=== PATIENT | male | born 1950 | race Caucasian/White ===

== ENCOUNTER 2017-12-28 14:07 | Inpatient (IN) | payer MEDICARE, BC ==
[2017-12-28] MEDS ORDERED: Metoclopramide 10 MG/2 ML SDV IVPUSH ONE (15:18)
[2017-12-28] MEDS ORDERED: Lactated Ringers 1,000 ML IV ONE ×2 (15:18→16:52)
--- NOTE | 2017-12-28 15:25 | EDM.PDOC ---
ED HPI GENERAL MEDICAL PROBLEM - General Chief Complaint: Respiratory Problem Stated Complaint: NECK/THROAT NOT FEELING RIGHT Time Seen by Provider: 12/28/17 15:05 Source of Information: Reports: Family, Old Records, RN History Limitations: Reports: Other (patient currently non-verbal with dementia) - History of Present Illness INITIAL COMMENTS - FREE TEXT/NARRATIVE: 67 yo male with dementia from the [facility] is sent in for lethargy and possible abdominal pain. Is not able to verbalize how he is feeling. No reported fever. Vomited a couple times yesterday. No oral intake since yesterday. Did at one point indicate abdominal pain. No diarrhea or constipation reported. Onset: Gradual Onset Date: 12/26/17 Duration: Day(s):, Getting Worse Location: Reports: Abdomen Quality: Reports: Other (unknown) Severity: Moderate Improves with: Reports: None Worsens with: Reports: Other (? time) Context: Reports: Other ([facility] patient with dementia.) Associated Symptoms: Reports: Loss of Appetite, Nausea/Vomiting. Denies: Fever/ Chills Treatments CMM TECHNICIAN: Reports: Other (see below) (none) Abdominal Pain Score (Numeric/FACES): 10 - Related Data Allergies Allergy/AdvReac Type Severity Reaction Status Date / Time No Known Allergies Allergy Verified 12/28/17 14:39 Home Meds: Home Meds Acetaminophen [Tylenol] 650 mg PO BID 12/28/17 [History] Calcium Carbonate/Vitamin D3 [Calcium 600 + Vit D Tablet] 1 tab PO BID 12/28/17 [History] Cholecalciferol (Vitamin D3) [Vitamin D3] 2,000 unit PO DAILY 12/28/17 [History] Citalopram Hydrobromide [Celexa] 10 mg PO DAILY 12/28/17 [History] Dextran 70/Hypromellose [Artificial Tears] 1 each EYEBOTH QID PRN 12/28/17 [ History] Lisinopril 5 mg PO DAILY 12/28/17 [History] Melatonin 3 mg PO BEDTIME 12/28/17 [History] Mirtazapine [Remeron] 15 mg PO BEDTIME 12/28/17 [History] atorvaSTATin [Lipitor] 10 mg PO BEDTIME 12/28/17 [History] metFORMIN [Glucophage] 500 mg PO BIDAC 12/28/17 [History] Past Medical History HEENT History: Reports: Impaired Vision Cardiovascular History: Reports: Hypertension Musculoskeletal History: Reports: Osteoporosis Endocrine/Metabolic History: Reports: Diabetes, Type II - Past Surgical History GI Surgical History: Reports: Appendectomy Other Neurological Surgeries/Procedures: DEMENTIA Other Musculoskeletal Surgeries/Procedures:: R HIP REPLACEMENT Social & Family History - Tobacco Use Smoking Status *Q: Unknown Ever Smoked ED ROS GENERAL - Review of Systems Review Of Systems: Unable To Obtain (due to dementia) Constitutional: Reports: No Symptoms ED EXAM, GENERAL - Physical Exam Exam: See Below Exam Limited By: No Limitations General Appearance: WD/WN, Lethargic, Mild Distress Eye Exam: Bilateral Eye: Normal Inspection Ears: Normal External Exam, Normal Canal, Hearing Grossly Normal, Normal TMs Ear Exam: Bilateral Ear: Auricle Normal, Canal Normal, TM normal Nose: Normal Inspection, Normal Mucosa, No Blood Throat/Mouth: Normal Inspection, Normal Lips, Normal Oropharynx, Normal Voice, No Airway Compromise Head: Atraumatic, Normocephalic Neck: Normal Inspection Respiratory/Chest: No Respiratory Distress, Lungs Clear, Normal Breath Sounds, No Accessory Muscle Use Cardiovascular: Regular Rate, Rhythm, No Edema GI/Abdominal: No Distention, Distended (minimally), Abnormal Bowel Sounds ( slightly decreased). No: Hernia Back Exam: Normal Inspection. No: CVA Tenderness (R), CVA Tenderness (L) Extremities: Normal Inspection, Normal Range of Motion, Non-Tender, No Pedal Edema Neurological: Alert, Oriented, CN II-XII Intact, Normal Cognition, No Motor/ Sensory Deficits Psychiatric: Normal Affect, Normal Mood Skin Exam: Warm, Dry, Intact, Normal Color, No Rash Lymphatic: No Adenopathy EKG INTERPRETATION EKG Date: 12/28/17 Time: 15:40 Rhythm: NSR Rate (Beats/Min): 95 [place]: Normal P-Wave: Present QRS: Normal ST-T: Normal QT: Normal Comparison: NA - No Prior EKG (no def'n acute ischemia) Course - Vital Signs Last Recorded V/S: Last Vital Signs Temp 37.8 C 12/28/17 16:58 Pulse 97 12/28/17 17:34 Resp 22 H 12/28/17 17:34 BP 113/54 L 12/28/17 16:58 Pulse Ox 93 L 12/28/17 17:34 - Orders/Labs/Meds Orders: Active Orders 24 hr Category Date Time Status EKG Documentation Completion [RC] ASDIRECTED Care 12/28/17 15:20 Active Anderson Catheter Insertion [Insert Urinary Catheter] [OM. Care 12/28/17 16:00 Ordered PC] Q24H Urinary Catheter Assessment [RC] ASDIRECTED Care 12/28/17 15:56 Active Abdomen 2V AP Flat Upright [CR] Stat Exams 12/28/17 15:23 Taken Abdomen Pelvis w Cont [CT] Stat Exams 12/28/17 16:25 Taken Chest 1V Frontal [CR] Stat Exams 12/28/17 15:53 Taken CLOSTRIDIUM DIFFICILE BY PCR [RM] Stat Lab 12/28/17 16:47 Ordered CULTURE BLOOD [BC] Stat Lab 12/28/17 16:33 Ordered HEPATIC FUNCTION PANEL,HFP [CHEM] Urgent Lab 12/28/17 17:36 Ordered UA W/MICROSCOPIC [URIN] Stat Lab 12/28/17 16:06 Ordered Iopamidol [Isovue-300 (61%)] Med 12/28/17 17:15 Active 100 ml IV . DIRECTED Lactated Ringers [Ringers, Lactated] 1,000 ml Med 12/28/17 16:52 Active IV BOLUS Piperacillin/Tazobactam [Zosyn] 3.375 gm Med 12/28/17 17:45 Active Sodium Chloride 0.9% [Normal Saline] 50 ml IV Q6H EKG 12 Lead [EK] Routine Ther 12/28/17 15:20 Ordered Medication Orders Lactated Ringer's (Ringers, Lactated) 1,000 mls @ 999 mls/hr IV BOLUS ONE Stop: 12/28/17 17:52 Last Admin: 12/28/17 16:56 Dose: 999 mls/hr Piperacillin Sod/Tazobactam (Sod 3.375 gm/ Sodium Chloride) 50 mls @ 100 mls/ hr IV Q6H BRANDON Iopamidol (Isovue-300 (61%)) 100 ml IV . DIRECTED BRANDON Last Admin: 12/28/17 17:30 Dose: 100 ml Labs: Laboratory Tests 12/28/17 12/28/17 12/28/17 Range/Units 15:15 15:15 15:54 WBC 27.7 H (4.5-11.0) K/uL RBC 3.88 L (4.30-5.90) M/uL Hgb 11.5 L (12.0-15.0) g/dL Hct 35.2 L (40.0-54.0) % MCV 91 (80-98) fL MCH 30 (27-31) pg MCHC 33 (32-36) % Plt Count 250 (150-400) K/uL D-Dimer, Quantitative (0.0-400.0) ng/mL Sodium 143 (140-148) mmol/L Potassium 4.4 (3.6-5.2) mmol/L Chloride 103 (100-108) mmol/L Carbon Dioxide 28 (21-32) mmol/L Anion Gap 12.0 (5.0-14.0) mmol/L BUN 44 H (7-18) mg/dL Creatinine 1.5 H (0.8-1.3) mg/dL Est Cr Clr Drug Dosing 44.73 mL/min Estimated GFR (MDRD) 46 L (>60) Glucose 193 H (74-106) mg/dL Lactic Acid 3.7 H (0.4-2.0) mmol/L Calcium 10.5 H (8.5-10.1) mg/dL Troponin I < 0.017 (0.000-0.056) ng/mL Lipase (73-393) U/L Urine Color Urine Appearance Urine pH (4.5-8.0) Ur Specific [place] (1.008-1.030) Urine Protein (NEGATIVE) mg/dL Urine Glucose (UA) (NEGATIVE) mg/dL Urine Ketones (NEGATIVE) mg/dL Urine Occult Blood (NEGATIVE) Urine Nitrite (NEGAITVE) Urine Bilirubin (NEGATIVE) Urine Urobilinogen (NORMAL) mg/dL Ur Leukocyte Esterase (NEGATIVE) Urine RBC (0-5) Urine WBC (0-5) Ur Epithelial Cells Amorphous Sediment Urine Bacteria Urine Mucus 12/28/17 12/28/17 12/28/17 Range/Units 16:00 16:06 16:26 WBC (4.5-11.0) K/uL RBC (4.30-5.90) M/uL Hgb (12.0-15.0) g/dL Hct (40.0-54.0) % MCV (80-98) fL MCH (27-31) pg MCHC (32-36) % Plt Count (150-400) K/uL D-Dimer, Quantitative 1120 H (0.0-400.0) ng/mL Sodium (140-148) mmol/L Potassium (3.6-5.2) mmol/L Chloride (100-108) mmol/L Carbon Dioxide (21-32) mmol/L Anion Gap (5.0-14.0) mmol/L BUN (7-18) mg/dL Creatinine (0.8-1.3) mg/dL Est Cr Clr Drug Dosing mL/min Estimated GFR (MDRD) (>60) Glucose (74-106) mg/dL Lactic Acid (0.4-2.0) mmol/L Calcium (8.5-10.1) mg/dL Troponin I (0.000-0.056) ng/mL Lipase 41 L (73-393) U/L Urine Color [place] Urine Appearance Slightly cloudy Urine pH 5.0 (4.5-8.0) Ur Specific [place] 1.025 (1.008-1.030) Urine Protein Trace (NEGATIVE) mg/dL Urine Glucose (UA) Normal (NEGATIVE) mg/dL Urine Ketones Negative (NEGATIVE) mg/dL Urine Occult Blood Negative (NEGATIVE) Urine Nitrite Negative (NEGAITVE) Urine Bilirubin Small (NEGATIVE) Urine Urobilinogen 1 (NORMAL) mg/dL Ur Leukocyte Esterase Negative (NEGATIVE) Urine RBC 0-5 (0-5) Urine WBC 0-5 (0-5) Ur Epithelial Cells Rare Amorphous Sediment Numerous Urine Bacteria Few Urine Mucus Not seen Meds: Medications Generic Name Dose Route Start Last Admin Trade Name Freq PRN Reason Stop Dose Admin Lactated Ringer's 1,000 mls @ 999 mls/hr 12/28/17 16:52 12/28/17 16:56 Ringers, Lactated IV 12/28/17 17:52 999 mls/hr BOLUS ONE Administration Piperacillin Sod/Tazobactam 50 mls @ 100 mls/hr 12/28/17 17:45 Sod 3.375 gm/ Sodium Chloride IV Q6H BRANDON Iopamidol 100 ml 12/28/17 17:15 12/28/17 17:30 Isovue-300 (61%) IV 100 ml . DIRECTED BRANDON Administration Discontinued Medications Generic Name Dose Route Start Last Admin Trade Name Freq PRN Reason Stop Dose Admin Lactated Ringer's 1,000 mls @ 1,000 mls/hr 12/28/17 15:18 12/28/17 15:37 Ringers, Lactated IV 12/28/17 16:17 1,000 mls/hr BOLUS ONE Administration Sodium Chloride 80 mls @ 3.5 mls/sec 12/28/17 17:01 12/28/17 17:30 Normal Saline IV 12/28/17 17:02 2.5 mls/sec ONETIME ONE Administration Metoclopramide HCl 10 mg 12/28/17 15:18 12/28/17 15:38 Reglan IVPUSH 12/28/17 15:19 10 mg ONETIME ONE Administration Sodium Chloride 10 ml 12/28/17 17:01 12/28/17 17:30 Saline Flush FLUSH 12/28/17 17:02 10 ml ONETIME ONE Administration - Radiology Interpretation Free Text/Narrative:: Abdominal Flat/upright [id number] CXR-negative CT abd/pelvis with IV contrast-acute cholecystitis CT Results Date: 12/28/17 CT Results Time: 17:40 Departure - Departure Time of Disposition: 17:55 Disposition: Admitted As Inpatient 64 Condition: Critical Clinical Impression: Acute cholecystitis, Mild dehydration, Elevated blood sugar Sepsis Qualifiers: Sepsis type: sepsis due to unspecified organism Qualified Code(s): A41.9 - Sepsis, unspecified organism Hypotension Qualifiers: Hypotension type: other hypotension type Qualified Code(s): I95.89 - Other hypotension - Discharge Information Referrals: Anthony Beck MD [Primary Care Provider] - Forms: ED Department Discharge - My Orders Last 24 Hours: My Active Orders 12/28/17 15:20 EKG Documentation Completion [RC] ASDIRECTED EKG 12 Lead [EK] Routine 12/28/17 15:23 Abdomen 2V AP Flat Upright [CR] Stat 12/28/17 15:53 Chest 1V Frontal [CR] Stat 12/28/17 15:56 Urinary Catheter Assessment [RC] ASDIRECTED 12/28/17 16:00 Anderson Catheter Insertion [Insert Urinary Catheter] [OM.PC] Q24H 12/28/17 16:06 UA W/MICROSCOPIC [URIN] Stat 12/28/17 16:25 Abdomen Pelvis w Cont [CT] Stat 12/28/17 16:33 CULTURE BLOOD [BC] Stat 12/28/17 17:15 Iopamidol [Isovue-300 (61%)] 100 ml IV . DIRECTED - Assessment/Plan Last 24 Hours: My Active Orders 12/28/17 15:20 EKG Documentation Completion [RC] ASDIRECTED EKG 12 Lead [EK] Routine 12/28/17 15:23 Abdomen 2V AP Flat Upright [CR] Stat 12/28/17 15:53 Chest 1V Frontal [CR] Stat 12/28/17 15:56 Urinary Catheter Assessment [RC] ASDIRECTED 12/28/17 16:00 Anderson Catheter Insertion [Insert Urinary Catheter] [OM.PC] Q24H 12/28/17 16:06 UA W/MICROSCOPIC [URIN] Stat 12/28/17 16:25 Abdomen Pelvis w Cont [CT] Stat 12/28/17 16:33 CULTURE BLOOD [BC] Stat 12/28/17 17:15 Iopamidol [Isovue-300 (61%)] 100 ml IV . DIRECTED
[2017-12-28] MEDS ORDERED: Sodium Chloride 0.9% 10 ML Syringe FLUSH ONE (17:01)
[2017-12-28] MEDS ORDERED: Sodium Chloride 0.9% 80 ML IV ONE (17:01)
[2017-12-28] MEDS ORDERED: Iopamidol 612 MG/ML 100 ML Bottle IV SCH (17:15)
--- NOTE | 2017-12-28 18:10 | PCM.HP ---
H&P History of Present Illness - General Date of Service: 12/28/17 Admit Problem/Dx: Admission Diagnosis/Problem Admission Diagnosis/Problem Acute cholecystitis Source of Information: Patient, Family, Provider History Limitations: Reports: Altered Mental Status (dementia ) - History of Present Illness Initial Comments - Free Text/Narative: Casey presents to the emergency room today with 2 days of progressive abdominal pain. He has some dementia and history is a little bit difficult to gather so I did receive assistance from his and emergency room personnel. The patient reports that he's had crampy abdominal pain for the past couple of days. It has become much worse today to the point that it was severe in nature. He has been taking Tylenol which hasn't helped much. He has had associated nausea and vomiting as well as diarrhea. There is no obvious trigger to make the pain worse. He did have a fever this morning. Appetite had been normal up until onset of symptoms. There has been no report of change in bladder habits. He is not currently reporting chest pain or shortness of breath. Workup in the emergency room revealed a significant white blood cell count elevation at 27,000 as well as an elevation in his lactic acid level. There was evidence for sepsis including tachycardia and hypotension. CT scan of the abdomen suggested acute cholecystitis. The patient will be admitted for management. Abdominal Pain Score (Numeric/FACES): 10 - Related Data Allergies/Adverse Reactions: Allergies Allergy/AdvReac Type Severity Reaction Status Date / Time No Known Allergies Allergy Verified 12/28/17 14:39 Home Medications: Home Meds Acetaminophen [Tylenol] 650 mg PO BID 12/28/17 [History] Calcium Carbonate/Vitamin D3 [Calcium 600 + Vit D Tablet] 1 tab PO BID 12/28/17 [History] Cholecalciferol (Vitamin D3) [Vitamin D3] 2,000 unit PO DAILY 12/28/17 [History] Citalopram Hydrobromide [Celexa] 10 mg PO DAILY 12/28/17 [History] Dextran 70/Hypromellose [Artificial Tears] 1 each EYEBOTH QID PRN 12/28/17 [ History] Lisinopril 5 mg PO DAILY 12/28/17 [History] Melatonin 3 mg PO BEDTIME 12/28/17 [History] Mirtazapine [Remeron] 15 mg PO BEDTIME 12/28/17 [History] atorvaSTATin [Lipitor] 10 mg PO BEDTIME 12/28/17 [History] metFORMIN [Glucophage] 500 mg PO BIDAC 12/28/17 [History] Past Medical History HEENT History: Reports: Impaired Vision Cardiovascular History: Reports: Hypertension Musculoskeletal History: Reports: Osteoporosis Endocrine/Metabolic History: Reports: Diabetes, Type II - Past Surgical History GI Surgical History: Reports: Appendectomy Other Neurological Surgeries/Procedures: DEMENTIA Other Musculoskeletal Surgeries/Procedures:: R HIP REPLACEMENT Social & Family History - Family History Cardiac: Denies: CAD - Tobacco Use Smoking Status *Q: Unknown Ever Smoked - Alcohol Use Alcohol Use History: No - Recreational Drug Use Recreational Drug Use: No H&P Review of Systems - Review of Systems: Review Of Systems: See Below Free Text/Narrative: A complete 12 point review of systems was obtained. Pertinent positives and negatives are noted in the history of present illness. All other systems were reviewed and were negative except as noted. Exam - Exam Exam: See Below - Vital Signs Vital Signs: Last Vital Signs Temp 37.8 C 12/28/17 16:58 Pulse 94 12/28/17 17:45 Resp 26 H 12/28/17 17:45 BP 107/55 L 12/28/17 17:45 Pulse Ox 93 L 12/28/17 17:45 Weight: 68.039 kg - Exam Quality Assessment: No: Supplemental Oxygen General: Alert, Cooperative, Mild Distress HEENT: Conjunctiva Clear. No: Mucosa Moist & [place] (dry), Scleral Icterus Neck: Supple, Trachea Midline. No: Lymphadenopathy Lungs: Clear to Auscultation, Normal Respiratory Effort Cardiovascular: Regular Rhythm, Tachycardia GI/Abdominal Exam: No Distention, Guarding, Tender (Moderate generalized tenderness). No: Normal Bowel Sounds (Hypoactive) Back Exam: No: Full Range of Motion Extremities: No Pedal Edema. No: Increased Warmth Peripheral Pulses: 2+: Dorsalis Pedis (L), Dorsalis Pedis (R) Skin: Warm, Dry Neuro Extensive - Mental Status: Alert, Nl Response to Commands. No: Oriented x3 Neuro Extensive - Motor, Sensory, Reflexes: No: Dysarthria, Abnormal Motor Psychiatric: Alert, Normal Affect - Patient Data Lab Results Last 24 hrs: Laboratory Results - last 24 hr 12/28/17 12/28/17 12/28/17 Range/Units 15:15 15:15 15:54 WBC 27.7 H (4.5-11.0) K/uL RBC 3.88 L (4.30-5.90) M/uL Hgb 11.5 L (12.0-15.0) g/dL Hct 35.2 L (40.0-54.0) % MCV 91 (80-98) fL MCH 30 (27-31) pg MCHC 33 (32-36) % Plt Count 250 (150-400) K/uL D-Dimer, Quantitative (0.0-400.0) ng/mL Sodium 143 (140-148) mmol/L Potassium 4.4 (3.6-5.2) mmol/L Chloride 103 (100-108) mmol/L Carbon Dioxide 28 (21-32) mmol/L Anion Gap 12.0 (5.0-14.0) mmol/L BUN 44 H (7-18) mg/dL Creatinine 1.5 H (0.8-1.3) mg/dL Est Cr Clr Drug Dosing 44.73 mL/min Estimated GFR (MDRD) 46 L (>60) Glucose 193 H (74-106) mg/dL Lactic Acid 3.7 H (0.4-2.0) mmol/L Calcium 10.5 H (8.5-10.1) mg/dL Total Bilirubin (0.2-1.0) mg/dL Direct Bilirubin (0.0-0.2) mg/dL Indirect Bilirubin AST (15-37) U/L ALT (12-78) U/L Alkaline Phosphatase (46-116) U/L Troponin I < 0.017 (0.000-0.056) ng/mL Total Protein (6.4-8.2) g/dL Albumin (3.4-5.0) g/dL Globulin (2.3-3.5) g/dL Albumin/Globulin Ratio (1.2-2.2) Lipase (73-393) U/L Urine Color Urine Appearance Urine pH (4.5-8.0) Ur Specific [place] (1.008-1.030) Urine Protein (NEGATIVE) mg/dL Urine Glucose (UA) (NEGATIVE) mg/dL Urine Ketones (NEGATIVE) mg/dL Urine Occult Blood (NEGATIVE) Urine Nitrite (NEGAITVE) Urine Bilirubin (NEGATIVE) Urine Urobilinogen (NORMAL) mg/dL Ur Leukocyte Esterase (NEGATIVE) Urine RBC (0-5) Urine WBC (0-5) Ur Epithelial Cells Amorphous Sediment Urine Bacteria Urine Mucus 12/28/17 12/28/17 12/28/17 Range/Units 16:00 16:06 16:26 WBC (4.5-11.0) K/uL RBC (4.30-5.90) M/uL Hgb (12.0-15.0) g/dL Hct (40.0-54.0) % MCV (80-98) fL MCH (27-31) pg MCHC (32-36) % Plt Count (150-400) K/uL D-Dimer, Quantitative 1120 H (0.0-400.0) ng/mL Sodium (140-148) mmol/L Potassium (3.6-5.2) mmol/L Chloride (100-108) mmol/L Carbon Dioxide (21-32) mmol/L Anion Gap (5.0-14.0) mmol/L BUN (7-18) mg/dL Creatinine (0.8-1.3) mg/dL Est Cr Clr Drug Dosing mL/min Estimated GFR (MDRD) (>60) Glucose (74-106) mg/dL Lactic Acid (0.4-2.0) mmol/L Calcium (8.5-10.1) mg/dL Total Bilirubin (0.2-1.0) mg/dL Direct Bilirubin (0.0-0.2) mg/dL Indirect Bilirubin AST (15-37) U/L ALT (12-78) U/L Alkaline Phosphatase (46-116) U/L Troponin I (0.000-0.056) ng/mL Total Protein (6.4-8.2) g/dL Albumin (3.4-5.0) g/dL Globulin (2.3-3.5) g/dL Albumin/Globulin Ratio (1.2-2.2) Lipase 41 L (73-393) U/L Urine Color [place] Urine Appearance Slightly cloudy Urine pH 5.0 (4.5-8.0) Ur Specific [place] 1.025 (1.008-1.030) Urine Protein Trace (NEGATIVE) mg/dL Urine Glucose (UA) Normal (NEGATIVE) mg/dL Urine Ketones Negative (NEGATIVE) mg/dL Urine Occult Blood Negative (NEGATIVE) Urine Nitrite Negative (NEGAITVE) Urine Bilirubin Small (NEGATIVE) Urine Urobilinogen 1 (NORMAL) mg/dL Ur Leukocyte Esterase Negative (NEGATIVE) Urine RBC 0-5 (0-5) Urine WBC 0-5 (0-5) Ur Epithelial Cells Rare Amorphous Sediment Numerous Urine Bacteria Few Urine Mucus Not seen 12/28/17 Range/Units 17:36 WBC (4.5-11.0) K/uL RBC (4.30-5.90) M/uL Hgb (12.0-15.0) g/dL Hct (40.0-54.0) % MCV (80-98) fL MCH (27-31) pg MCHC (32-36) % Plt Count (150-400) K/uL D-Dimer, Quantitative (0.0-400.0) ng/mL Sodium (140-148) mmol/L Potassium (3.6-5.2) mmol/L Chloride (100-108) mmol/L Carbon Dioxide (21-32) mmol/L Anion Gap (5.0-14.0) mmol/L BUN (7-18) mg/dL Creatinine (0.8-1.3) mg/dL Est Cr Clr Drug Dosing mL/min Estimated GFR (MDRD) (>60) Glucose (74-106) mg/dL Lactic Acid (0.4-2.0) mmol/L Calcium (8.5-10.1) mg/dL Total Bilirubin 1.1 H (0.2-1.0) mg/dL Direct Bilirubin 0.25 H (0.0-0.2) mg/dL Indirect Bilirubin 0.85 AST 22 (15-37) U/L ALT 21 (12-78) U/L Alkaline Phosphatase 65 (46-116) U/L Troponin I (0.000-0.056) ng/mL Total Protein 7.7 (6.4-8.2) g/dL Albumin 3.5 (3.4-5.0) g/dL Globulin 4.2 H (2.3-3.5) g/dL Albumin/Globulin Ratio 0.8 L (1.2-2.2) Lipase (73-393) U/L Urine Color Urine Appearance Urine pH (4.5-8.0) Ur Specific [place] (1.008-1.030) Urine Protein (NEGATIVE) mg/dL Urine Glucose (UA) (NEGATIVE) mg/dL Urine Ketones (NEGATIVE) mg/dL Urine Occult Blood (NEGATIVE) Urine Nitrite (NEGAITVE) Urine Bilirubin (NEGATIVE) Urine Urobilinogen (NORMAL) mg/dL Ur Leukocyte Esterase (NEGATIVE) Urine RBC (0-5) Urine WBC (0-5) Ur Epithelial Cells Amorphous Sediment Urine Bacteria Urine Mucus Result Diagrams: 12/28/17 15:15 12/28/17 15:15 Imaging Impressions Last 24 hrs: Chest x-ray - images personally reviewed - no free air. No mass, infiltrate or effusion. Abdominal x-ray - images personally reviewed - nonspecific bowel gas pattern, no free air or evidence for obstruction CT scan of the abdomen and pelvis - large left renal cyst with no evidence for rupture. Gallbladder wall is thick and there is a fair amount of pericholecystic fluid. Gallbladder is also distended. All of these are concerning for acute cholecystitis. EKG INTERPRETATION EKG Date: 12/28/17 Rhythm: NSR Rate (Beats/Min): 94 [place]: Normal P-Wave: Present QRS: Normal ST-T: Normal QT: Normal *Q Meaningful Use (ADM) - VTE Risk Assess *Q Each Risk Factor Represents 1 Point: None Total Score 1 Point Risk Factors: 0 Each Risk Factor Represents 2 Points: Age 60 - 74 Years Total Score 2 Point Risk Factors: 2 Each Risk Factor Represents 3 Points: None Total Score 3 Point Risk Factors: 0 Each Risk Factor Represents 5 Points: None Total Score 5 Point Risk Factors: 0 Venous Thromboembolism Risk Factor Score *Q: 2 - Problem List (1) Acute cholecystitis SNOMED Code(s): 49645151 ICD Code: K81.0 - ACUTE CHOLECYSTITIS Status: Acute Current Visit: Yes (2) Sepsis SNOMED Code(s): 61240001 ICD Code: A41.9 - SEPSIS, UNSPECIFIED ORGANISM Status: Acute Current Visit: Yes Qualifiers: Sepsis type: sepsis due to unspecified organism Qualified Code(s): A41.9 - Sepsis, unspecified organism (3) Alzheimer's dementia without behavioral disturbance SNOMED Code(s): 08318908 ICD Code: G30.9 - ALZHEIMER'S DISEASE, UNSPECIFIED; F02.80 - DEMENTIA IN OTH DISEASES CLASSD ELSWHR W/O BEHAVRL DISTURB Status: Acute Current Visit: Yes Qualifiers: Alzheimer's disease onset: late-onset Qualified Code(s): G30.1 - Alzheimer' s disease with late onset; F02.80 - Dementia in other diseases classified elsewhere without behavioral disturbance (4) Diabetes mellitus type 2 in nonobese SNOMED Code(s): 735963633 ICD Code: E11.9 - TYPE 2 DIABETES MELLITUS WITHOUT COMPLICATIONS Status: Chronic Current Visit: Yes (5) CKD (chronic kidney disease), stage III SNOMED Code(s): 163509542 ICD Code: N18.3 - CHRONIC KIDNEY DISEASE, STAGE 3 (MODERATE) Status: Chronic Current Visit: Yes Problem List Initiated/Reviewed/Updated: Yes Orders Last 24hrs: Active Orders 24 hr Category Date Time Status Patient Status Manage Transfer [TRANSFER] Routine ADT 12/28/17 18:03 Ordered EKG Documentation Completion [RC] ASDIRECTED Care 12/28/17 15:20 Active Anderson Catheter Insertion [Insert Urinary Catheter] [OM. Care 12/28/17 16:00 Ordered PC] Q24H Urinary Catheter Assessment [RC] ASDIRECTED Care 12/28/17 15:56 Active Abdomen 2V AP Flat Upright [CR] Stat Exams 12/28/17 15:23 Taken Abdomen Pelvis w Cont [CT] Stat Exams 12/28/17 16:25 Taken Chest 1V Frontal [CR] Stat Exams 12/28/17 15:53 Taken CLOSTRIDIUM DIFFICILE BY PCR [RM] Stat Lab 12/28/17 16:47 Ordered CULTURE BLOOD [BC] Stat Lab 12/28/17 16:33 Ordered UA W/MICROSCOPIC [URIN] Stat Lab 12/28/17 16:06 Ordered Iopamidol [Isovue-300 (61%)] Med 12/28/17 17:15 Active 100 ml IV . DIRECTED Piperacillin/Tazobactam [Zosyn] 3.375 gm Med 12/28/17 17:45 Active Sodium Chloride 0.9% [Normal Saline] 50 ml IV Q6H Resuscitation Status Routine Resus Stat 12/28/17 18:04 Ordered EKG 12 Lead [EK] Routine Ther 12/28/17 15:20 Ordered Medication Orders Piperacillin Sod/Tazobactam (Sod 3.375 gm/ Sodium Chloride) 50 mls @ 100 mls/ hr IV Q6H [place] Iopamidol (Isovue-300 (61%)) 100 ml IV . DIRECTED [facility] Last Admin: 12/28/17 17:30 Dose: 100 ml Assessment/Plan Comment:: ASSESSMENT AND PLAN - Acute cholecystitis with sepsis - white blood cell count significantly elevated but hepatic panel numbers are normal. CT suggestive of acute cholecystitis with distended gallbladder and pericholecystic fluid. Evidence for sepsis includes hypotension, tachycardia and lactic acidosis. -IV fluids -Pain control -Antibiotic coverage with Pip/Tazo -Surgical consultation for cholecystectomy in the morning Stage III chronic kidney disease - patient did receive IV contrast because of the acute nature of his presentation. He will need additional hydration overnight and close monitoring of urine output. -Repeat labs in the morning after hydration overnight Alzheimer's dementia without behavioral disturbance - with acute infection and hospitalization he is at high risk for delirium and or confusion. -Melatonin at bedtime Diabetes mellitus type 2 - patient is currently on metformin and this will be on hold with nothing by mouth status. -Low-dose sliding scale insulin with Accu-Cheks Maintenance issues - - DVT prophylaxis - mechanical - GI prophylaxis - IV PPI tonight, reassess tomorrow - Nutrition - nothing by mouth - Anderson catheter - placed in the emergency room for strict intake and output monitoring during acute illness CODE STATUS - DNR/DNI Admission justification - This patient will be admitted for inpatient services and is medically appropriate meeting medical necessity for inpatient admission as outlined in my documentation. I reasonably expect the patient will require inpatient services that span a period time over 2 midnights. I reasonably expect this patient to be discharged or transferred within 96 hours [facility]. Disposition - anticipate discharge back to the snf after the hospital stay Primary care physician - Dr Kiran Altamirano M.D.
[2017-12-28] MEDS ORDERED: Albuterol 0.083% 2.5 MG/3 ML Neb Soln NEB PRN (19:01)
[2017-12-28] MEDS ORDERED: Ondansetron 4 MG Tab.DIS PO PRN (19:01)
[2017-12-28] MEDS ORDERED: Pantoprazole 40 MG Vial IV ONE (19:01)
[2017-12-28] MEDS ORDERED: Hypromellose 0.4% Ophth Soln 15 ML Bottle EYEBOTH PRN (19:15)
[2017-12-28] MEDS: Piperacillin/Tazobactam 3.375 GM in Sodium Chloride 0.9% 50 ML IV SCH (19:40)
[2017-12-28] MEDS: oxyCODONE 5 MG Tab PO PRN (19:54)
[2017-12-28] MEDS: Sodium Chloride 0.9% 1,000 ML IV SCH (19:57)
[2017-12-28] MEDS: Insulin Aspart 100 Units/ML 3 ML Pen SUBCUT SCH (20:52)
[2017-12-28] MEDS: Melatonin 3 MG Tab PO SCH (21:12)
[2017-12-28] MEDS: Mirtazapine 15 MG Tab PO SCH (21:12)
[2017-12-29] MEDS: Piperacillin/Tazobactam 3.375 GM in Sodium Chloride 0.9% 50 ML IV SCH ×2 (01:09→06:33)
[2017-12-29] MEDS: Acetaminophen 325 MG Tab PO PRN ×2 (02:55→20:22)
[2017-12-29] MEDS: Sodium Chloride 0.9% 1,000 ML IV SCH (03:59)
[2017-12-29] MEDS ORDERED: Bupivacaine 0.5% 50 ML MDV ONE (07:00)
[2017-12-29] MEDS ORDERED: Lidocaine 1% with EPINEPHrine 1:100,000 50 ML MDV ONE (07:00)
[2017-12-29] MEDS ORDERED: Hypromellose 0.4% Ophth Soln 15 ML Bottle EYEBOTH PRN (07:31)
[2017-12-29] MEDS ORDERED: Neostigmine Methylsulfate 1 MG/ML 5 ML Syringe ONE (08:05)
[2017-12-29] MEDS ORDERED: fentaNYL 250 MCG/5 ML SDV ONE (08:05)
[2017-12-29] MEDS ORDERED: Glycopyrrolate 0.2 MG/ML 5 ML MDV ONE (08:05)
[2017-12-29] MEDS ORDERED: Propofol 200 MG/20 ML SDV ONE (08:05)
[2017-12-29] MEDS ORDERED: Rocuronium 50 MG/5 ML Vial ONE (08:05)
[2017-12-29] MEDS ORDERED: Ondansetron 4 MG/2 ML SDV ONE (08:05)
[2017-12-29] MEDS ORDERED: Sodium Chloride 0.9% 10 ML ONE (08:31)
[2017-12-29] MEDS ORDERED: cefOXitin 2 GM Vial ONE (08:31)
[2017-12-29] MEDS ORDERED: Sodium Chloride 0.9% 500 ML ONE ×2 (08:36)
[2017-12-29] MEDS ORDERED: ePHEDrine 50 MG/ML SDV ONE (08:48)
[2017-12-29] MEDS ORDERED: Ondansetron 4 MG/2 ML SDV IVPUSH PRN (10:53)
[2017-12-29] MEDS: D5 1/2 NS w/ 20 mEq/L KCl 1,000 ML IV SCH ×2 (11:04→20:23)
[2017-12-29] MEDS: Piperacillin/Tazobactam/Dext 3.375 GM in Premix Bag 1 BAG IV SCH ×3 (11:14→23:25)
--- NOTE | 2017-12-29 11:16 | PCM.PN ---
- General Info Date of Service: 12/29/17 Functional Status: Reports: Pain Controlled - Review of Systems General: Reports: Fever Gastrointestinal: Reports: Abdominal Pain Systems Review Comment:: No acute events overnight. Patient had a successful cholecystectomy and a gangrenous gallbladder was identified during surgery. He is sleepy postoperatively and does not answer questions. Vital signs have been stable. Blood culture negative so far. Tolerating current antibiotics. - Patient Data Vitals - Most Recent: Last Vital Signs Temp 36.7 C 12/29/17 11:05 Pulse 96 12/29/17 11:05 Resp 24 H 12/29/17 11:05 BP 121/60 12/29/17 11:05 Pulse Ox 95 12/29/17 10:35 Weight - Most Recent: 73.2 kg I&O - Last 24 Hours: Intake & Output 12/28/17 12/29/17 12/29/17 22:59 06:59 14:59 Intake Total 50 1280 0 Output Total 675 Balance 50 605 0 Lab Results Last 24 Hours: Laboratory Results - last 24 hr 12/28/17 12/28/17 12/28/17 Range/Units 15:15 15:15 15:54 WBC 27.7 H (4.5-11.0) K/uL RBC 3.88 L (4.30-5.90) M/uL Hgb 11.5 L (12.0-15.0) g/dL Hct 35.2 L (40.0-54.0) % MCV 91 (80-98) fL MCH 30 (27-31) pg MCHC 33 (32-36) % Plt Count 250 (150-400) K/uL D-Dimer, Quantitative (0.0-400.0) ng/mL Sodium 143 (140-148) mmol/L Potassium 4.4 (3.6-5.2) mmol/L Chloride 103 (100-108) mmol/L Carbon Dioxide 28 (21-32) mmol/L Anion Gap 12.0 (5.0-14.0) mmol/L BUN 44 H (7-18) mg/dL Creatinine 1.5 H (0.8-1.3) mg/dL Est Cr Clr Drug Dosing 44.73 mL/min Estimated GFR (MDRD) 46 L (>60) Glucose 193 H (74-106) mg/dL Lactic Acid 3.7 H (0.4-2.0) mmol/L Calcium 10.5 H (8.5-10.1) mg/dL Total Bilirubin (0.2-1.0) mg/dL Direct Bilirubin (0.0-0.2) mg/dL Indirect Bilirubin AST (15-37) U/L ALT (12-78) U/L Alkaline Phosphatase (46-116) U/L Troponin I < 0.017 (0.000-0.056) ng/mL Total Protein (6.4-8.2) g/dL Albumin (3.4-5.0) g/dL Globulin (2.3-3.5) g/dL Albumin/Globulin Ratio (1.2-2.2) Lipase (73-393) U/L Urine Color Urine Appearance Urine pH (4.5-8.0) Ur Specific [place] (1.008-1.030) Urine Protein (NEGATIVE) mg/dL Urine Glucose (UA) (NEGATIVE) mg/dL Urine Ketones (NEGATIVE) mg/dL Urine Occult Blood (NEGATIVE) Urine Nitrite (NEGAITVE) Urine Bilirubin (NEGATIVE) Urine Urobilinogen (NORMAL) mg/dL Ur Leukocyte Esterase (NEGATIVE) Urine RBC (0-5) Urine WBC (0-5) Ur Epithelial Cells Amorphous Sediment Urine Bacteria Urine Mucus 12/28/17 12/28/17 12/28/17 Range/Units 16:00 16:06 16:26 WBC (4.5-11.0) K/uL RBC (4.30-5.90) M/uL Hgb (12.0-15.0) g/dL Hct (40.0-54.0) % MCV (80-98) fL MCH (27-31) pg MCHC (32-36) % Plt Count (150-400) K/uL D-Dimer, Quantitative 1120 H (0.0-400.0) ng/mL Sodium (140-148) mmol/L Potassium (3.6-5.2) mmol/L Chloride (100-108) mmol/L Carbon Dioxide (21-32) mmol/L Anion Gap (5.0-14.0) mmol/L BUN (7-18) mg/dL Creatinine (0.8-1.3) mg/dL Est Cr Clr Drug Dosing mL/min Estimated GFR (MDRD) (>60) Glucose (74-106) mg/dL Lactic Acid (0.4-2.0) mmol/L Calcium (8.5-10.1) mg/dL Total Bilirubin (0.2-1.0) mg/dL Direct Bilirubin (0.0-0.2) mg/dL Indirect Bilirubin AST (15-37) U/L ALT (12-78) U/L Alkaline Phosphatase (46-116) U/L Troponin I (0.000-0.056) ng/mL Total Protein (6.4-8.2) g/dL Albumin (3.4-5.0) g/dL Globulin (2.3-3.5) g/dL Albumin/Globulin Ratio (1.2-2.2) Lipase 41 L (73-393) U/L Urine Color [place] Urine Appearance Slightly cloudy Urine pH 5.0 (4.5-8.0) Ur Specific [place] 1.025 (1.008-1.030) Urine Protein Trace (NEGATIVE) mg/dL Urine Glucose (UA) Normal (NEGATIVE) mg/dL Urine Ketones Negative (NEGATIVE) mg/dL Urine Occult Blood Negative (NEGATIVE) Urine Nitrite Negative (NEGAITVE) Urine Bilirubin Small (NEGATIVE) Urine Urobilinogen 1 (NORMAL) mg/dL Ur Leukocyte Esterase Negative (NEGATIVE) Urine RBC 0-5 (0-5) Urine WBC 0-5 (0-5) Ur Epithelial Cells Rare Amorphous Sediment Numerous Urine Bacteria Few Urine Mucus Not seen 12/28/17 12/28/17 12/29/17 Range/Units 17:36 20:30 05:30 WBC 14.4 H (4.5-11.0) K/uL RBC 3.80 L (4.30-5.90) M/uL Hgb 11.0 L (12.0-15.0) g/dL Hct 34.7 L (40.0-54.0) % MCV 91 (80-98) fL MCH 29 (27-31) pg MCHC 32 (32-36) % Plt Count 216 (150-400) K/uL D-Dimer, Quantitative (0.0-400.0) ng/mL Sodium (140-148) mmol/L Potassium (3.6-5.2) mmol/L Chloride (100-108) mmol/L Carbon Dioxide (21-32) mmol/L Anion Gap (5.0-14.0) mmol/L BUN (7-18) mg/dL Creatinine (0.8-1.3) mg/dL Est Cr Clr Drug Dosing mL/min Estimated GFR (MDRD) (>60) Glucose (74-106) mg/dL Lactic Acid 2.7 H (0.4-2.0) mmol/L Calcium (8.5-10.1) mg/dL Total Bilirubin 1.1 H (0.2-1.0) mg/dL Direct Bilirubin 0.25 H (0.0-0.2) mg/dL Indirect Bilirubin 0.85 AST 22 (15-37) U/L ALT 21 (12-78) U/L Alkaline Phosphatase 65 (46-116) U/L Troponin I (0.000-0.056) ng/mL Total Protein 7.7 (6.4-8.2) g/dL Albumin 3.5 (3.4-5.0) g/dL Globulin 4.2 H (2.3-3.5) g/dL Albumin/Globulin Ratio 0.8 L (1.2-2.2) Lipase (73-393) U/L Urine Color Urine Appearance Urine pH (4.5-8.0) Ur Specific [place] (1.008-1.030) Urine Protein (NEGATIVE) mg/dL Urine Glucose (UA) (NEGATIVE) mg/dL Urine Ketones (NEGATIVE) mg/dL Urine Occult Blood (NEGATIVE) Urine Nitrite (NEGAITVE) Urine Bilirubin (NEGATIVE) Urine Urobilinogen (NORMAL) mg/dL Ur Leukocyte Esterase (NEGATIVE) Urine RBC (0-5) Urine WBC (0-5) Ur Epithelial Cells Amorphous Sediment Urine Bacteria Urine Mucus 12/29/17 Range/Units 05:30 WBC (4.5-11.0) K/uL RBC (4.30-5.90) M/uL Hgb (12.0-15.0) g/dL Hct (40.0-54.0) % MCV (80-98) fL MCH (27-31) pg MCHC (32-36) % Plt Count (150-400) K/uL D-Dimer, Quantitative (0.0-400.0) ng/mL Sodium 141 (140-148) mmol/L Potassium 4.0 (3.6-5.2) mmol/L Chloride 105 (100-108) mmol/L Carbon Dioxide 29 (21-32) mmol/L Anion Gap 7.4 (5.0-14.0) mmol/L BUN 47 H (7-18) mg/dL Creatinine 1.4 H (0.8-1.3) mg/dL Est Cr Clr Drug Dosing 49.80 mL/min Estimated GFR (MDRD) 50 L (>60) Glucose 158 H (74-106) mg/dL Lactic Acid (0.4-2.0) mmol/L Calcium 9.2 (8.5-10.1) mg/dL Total Bilirubin 0.8 (0.2-1.0) mg/dL Direct Bilirubin (0.0-0.2) mg/dL Indirect Bilirubin AST 22 (15-37) U/L ALT 17 (12-78) U/L Alkaline Phosphatase 59 (46-116) U/L Troponin I (0.000-0.056) ng/mL Total Protein 6.5 (6.4-8.2) g/dL Albumin 2.7 L (3.4-5.0) g/dL Globulin 3.8 H (2.3-3.5) g/dL Albumin/Globulin Ratio 0.7 L (1.2-2.2) Lipase (73-393) U/L Urine Color Urine Appearance Urine pH (4.5-8.0) Ur Specific [place] (1.008-1.030) Urine Protein (NEGATIVE) mg/dL Urine Glucose (UA) (NEGATIVE) mg/dL Urine Ketones (NEGATIVE) mg/dL Urine Occult Blood (NEGATIVE) Urine Nitrite (NEGAITVE) Urine Bilirubin (NEGATIVE) Urine Urobilinogen (NORMAL) mg/dL Ur Leukocyte Esterase (NEGATIVE) Urine RBC (0-5) Urine WBC (0-5) Ur Epithelial Cells Amorphous Sediment Urine Bacteria Urine Mucus Aaron Results Last 24 Hours: Microbiology 12/29/17 08:40 Gram Stain - Final Peritoneal Fluid 12/28/17 18:32 Clostridium difficile (PCR) - Final Stool / Feces NEGATIVE CDIFF TOXIN Med Orders - Current: Current Medications Acetaminophen (Tylenol) 650 mg PO Q4H PRN PRN Reason: Pain (Mild 1-3)/fever Last Admin: 12/29/17 02:55 Dose: 650 mg Albuterol (Proventil Neb Soln) 2.5 mg NEB Q4H PRN PRN Reason: Shortness Of Breath/wheezing Artificial Tears (Natural Balance Tears) 0 ml EYEBOTH QID PRN PRN Reason: Dry Eyes Hydromorphone HCl (Dilaudid) 0.5 mg IVPUSH Q2H PRN PRN Reason: Pain Piperacillin/Tazobactam/ (Dextrose 3.375 gm/ Premix) 50 mls @ 100 mls/hr IV Q6H [facility] Potassium Chloride/Dextrose/Sod Cl (D5 1/2 Ns W/ 20 Meq/L Kcl) 1,000 mls @ 125 mls/hr IV ASDIRECTED [facility] Last Admin: 12/29/17 11:04 Dose: 125 mls/hr Insulin Aspart (Novolog) 0 unit SUBCUT QIDACANDBED [facility]; Protocol Last Admin: 12/28/17 20:52 Dose: 1 unit Lorazepam (Ativan) 0.5 - 1 mg IVPUSH Q4H PRN PRN Reason: Nausea/Vomiting Melatonin (Melatonin) 9 mg PO BEDTIME [facility] Last Admin: 12/28/17 21:12 Dose: 9 mg Mirtazapine (Remeron) 15 mg PO BEDTIME [facility] Last Admin: 12/28/17 21:12 Dose: 15 mg Ondansetron HCl (Zofran Odt) 4 mg PO Q6H PRN PRN Reason: Nausea able to take PO Ondansetron HCl (Zofran) 4 mg IV Q6H PRN PRN Reason: Nausea/Vomiting Oxycodone HCl (Oxycodone) 5 mg PO Q4H PRN PRN Reason: Pain Last Admin: 12/28/17 19:54 Dose: 5 mg Discontinued Medications Bupivacaine HCl (Marcaine 0.5%) Confirm Administered Dose 50 ml .ROUTE .STK-MED ONE Stop: 12/29/17 07:01 Last Admin: 12/29/17 08:51 Dose: 10 ml Cefoxitin Sodium (Mefoxin) Confirm Administered Dose 2 gm .ROUTE .STK-MED ONE Stop: 12/29/17 08:32 Ephedrine Sulfate (Ephedrine Sulfate) Confirm Administered Dose 50 mg .ROUTE .STK-MED ONE Stop: 12/29/17 08:49 Fentanyl (Sublimaze) Confirm Administered Dose 250 mcg .ROUTE .STK-MED ONE Stop: 12/29/17 08:06 Glycopyrrolate (Robinul) Confirm Administered Dose 1 mg .ROUTE .STK-MED ONE Stop: 12/29/17 08:06 Lactated Ringer's (Ringers, Lactated) 1,000 mls @ 1,000 mls/hr IV BOLUS ONE Stop: 12/28/17 16:17 Last Admin: 12/28/17 15:37 Dose: 1,000 mls/hr Lactated Ringer's (Ringers, Lactated) 1,000 mls @ 999 mls/hr IV BOLUS ONE Stop: 12/28/17 17:52 Last Admin: 12/28/17 16:56 Dose: 999 mls/hr Sodium Chloride (Normal Saline) 80 mls @ 3.5 mls/sec IV ONETIME ONE Stop: 12/28/17 17:02 Last Admin: 12/28/17 17:30 Dose: 2.5 mls/sec Piperacillin Sod/Tazobactam (Sod 3.375 gm/ Sodium Chloride) 50 mls @ 100 mls/ hr IV Q6H [facility] Last Admin: 12/29/17 06:33 Dose: 100 mls/hr Sodium Chloride (Normal Saline) 1,000 mls @ 125 mls/hr IV ASDIRECTED [facility] Last Admin: 12/29/17 03:59 Dose: 125 mls/hr Sodium Chloride (Normal Saline) Confirm Administered Dose 10 mls @ as directed .ROUTE .STK-MED ONE Stop: 12/29/17 08:32 Sodium Chloride (Normal Saline) Confirm Administered Dose 500 mls @ as directed .ROUTE .STK-MED ONE Stop: 12/29/17 08:37 Sodium Chloride (Normal Saline) Confirm Administered Dose 500 mls @ as directed .ROUTE .STK-MED ONE Stop: 12/29/17 08:37 Iopamidol (Isovue-300 (61%)) 100 ml IV . DIRECTED [facility] Last Admin: 12/28/17 17:30 Dose: 100 ml Lactated Ringer's (Ringers, Lactated) 1,000 ml IRR .STK-MED ONE Stop: 12/29/17 09:01 Last Admin: 12/29/17 09:00 Dose: 1,000 ml Lidocaine/Epinephrine (Xylocaine 1% With Epinephrine 1:100,000) Confirm Administered Dose 50 ml .ROUTE .STK-MED ONE Stop: 12/29/17 07:01 Last Admin: 12/29/17 08:51 Dose: 10 ml Metoclopramide HCl (Reglan) 10 mg IVPUSH ONETIME ONE Stop: 12/28/17 15:19 Last Admin: 12/28/17 15:38 Dose: 10 mg Neostigmine Methylsulfate (Neostigmine) Confirm Administered Dose 5 mg .ROUTE .STK-MED ONE Stop: 12/29/17 08:06 Ondansetron HCl (Zofran) Confirm Administered Dose 4 mg .ROUTE .STK-MED ONE Stop: 12/29/17 08:06 Pantoprazole Sodium (Protonix Iv) 40 mg IV ONETIME ONE Stop: 12/28/17 19:02 Last Admin: 12/28/17 19:45 Dose: 40 mg Propofol (Diprivan 20 Ml) Confirm Administered Dose 200 mg .ROUTE .STK-MED ONE Stop: 12/29/17 08:06 Rocuronium [place] (Zemuron) Confirm Administered Dose 50 mg .ROUTE .STK-MED ONE Stop: 12/29/17 08:06 Sodium Chloride (Saline Flush) 10 ml FLUSH ONETIME ONE Stop: 12/28/17 17:02 Last Admin: 12/28/17 17:30 Dose: 10 ml - Exam Quality Assessment: Supplemental Oxygen General: No Acute Distress, Sedated. No: Alert Lungs: Clear to Auscultation, Normal Respiratory Effort Cardiovascular: Regular Rate, Regular Rhythm GI/Abdominal Exam: Soft, No Distention, Tender Extremities: No Pedal Edema Psy/Mental Status: Alert, Normal Affect - Problem List & Annotations (1) Acute cholecystitis SNOMED Code(s): 54902791 Code(s): K81.0 - ACUTE CHOLECYSTITIS Status: Acute Current Visit: Yes (2) Sepsis SNOMED Code(s): 57501799 Code(s): A41.9 - SEPSIS, UNSPECIFIED ORGANISM Status: Acute Current Visit : Yes Qualifiers: Sepsis type: sepsis due to unspecified organism Qualified Code(s): A41.9 - Sepsis, unspecified organism (3) Alzheimer's dementia without behavioral disturbance SNOMED Code(s): 53000463 Code(s): G30.9 - ALZHEIMER'S DISEASE, UNSPECIFIED; F02.80 - DEMENTIA IN OTH DISEASES CLASSD ELSWHR W/O BEHAVRL DISTURB Status: Acute Current Visit: Yes Qualifiers: Alzheimer's disease onset: late-onset Qualified Code(s): G30.1 - Alzheimer' s disease with late onset; F02.80 - Dementia in other diseases classified elsewhere without behavioral disturbance (4) Diabetes mellitus type 2 in nonobese SNOMED Code(s): 764842388 Code(s): E11.9 - TYPE 2 DIABETES MELLITUS WITHOUT COMPLICATIONS Status: Chronic Current Visit: Yes (5) CKD (chronic kidney disease), stage III SNOMED Code(s): 351274776 Code(s): N18.3 - CHRONIC KIDNEY DISEASE, STAGE 3 (MODERATE) Status: Chronic Current Visit: Yes - Problem List Review Problem List Initiated/Reviewed/Updated: Yes - My Orders Last 24 Hours: My Active Orders 12/28/17 18:04 Resuscitation Status Routine 12/28/17 19:01 Patient Status [ADT] Routine Bedrest Bedside Commode [RC] ASDIRECTED Communication Order [RC] PRN Communication Order [RC] PRN Diabetes Education [RC] Click to Edit Intake and Output [RC] QSHIFT Notify Provider Consults [RC] ASDIRECTED Notify Provider Vital Signs [RC] ASDIRECTED Notify Provider [RC] PRN Oxygen Therapy [RC] PRN RT Aerosol Therapy [RC] ASDIRECTED VTE/DVT Education [RC] Per Unit Routine Vital Signs [RC] Q4H Consult to Physician [CONS] Routine Acetaminophen [Tylenol] 650 mg PO Q4H PRN Albuterol [Proventil Neb Soln] 2.5 mg NEB Q4H PRN HYDROmorphone [Dilaudid] 0.5 mg IVPUSH Q2H PRN LORazepam [Ativan] 0.5 - 1 mg IVPUSH Q4H PRN Ondansetron [Zofran ODT] 4 mg PO Q6H PRN Ondansetron [Zofran] 4 mg IV Q6H PRN oxyCODONE 5 mg PO Q4H PRN Sequential Compression Device [OM.PC] Per Unit Routine VTE Pharmacological Contraindications [AST] Per Unit Routine 12/28/17 20:00 Insulin Aspart [NovoLOG] See Protocol SUBCUT QIDACANDBED 12/28/17 21:00 Melatonin 9 mg PO BEDTIME Mirtazapine [Remeron] 15 mg PO BEDTIME 12/28/17 22:57 OT Evaluation and Treatment [CONS] Routine PT Screening [OM.PC] Routine 12/28/17 22:58 Assess Discharge Needs [OM.PC] Routine 12/29/17 07:31 Hypromellose [Natural Balance Tears] 0 ml EYEBOTH QID PRN 12/29/17 11:30 GLUCOSE POC LAB TO COLLECT [POC] QIDACANDBED 12/29/17 12:00 Piperacillin/Tazobactam/Dext [Zosyn in Dextrose Iso-Osmotic 3.375 GM] 3.375 gm Premix Bag 1 bag IV Q6H 12/29/17 16:30 GLUCOSE POC LAB TO COLLECT [POC] QIDACANDBED 12/29/17 21:00 GLUCOSE POC LAB TO COLLECT [POC] QIDACANDBED 12/30/17 07:30 GLUCOSE POC LAB TO COLLECT [POC] QIDACANDBED 12/30/17 11:30 GLUCOSE POC LAB TO COLLECT [POC] QIDACANDBED 12/30/17 16:30 GLUCOSE POC LAB TO COLLECT [POC] QIDACANDBED 12/30/17 21:00 GLUCOSE POC LAB TO COLLECT [POC] QIDACANDBED 12/31/17 07:30 GLUCOSE POC LAB TO COLLECT [POC] QIDACANDBED 12/31/17 11:30 GLUCOSE POC LAB TO COLLECT [POC] QIDACANDBED 12/31/17 16:30 GLUCOSE POC LAB TO COLLECT [POC] QIDACANDBED 12/31/17 21:00 GLUCOSE POC LAB TO COLLECT [POC] QIDACANDBED 01/01/18 07:30 GLUCOSE POC LAB TO COLLECT [POC] QIDACANDBED 01/01/18 11:30 GLUCOSE POC LAB TO COLLECT [POC] QIDACANDBED 01/01/18 16:30 GLUCOSE POC LAB TO COLLECT [POC] QIDACANDBED 01/01/18 21:00 GLUCOSE POC LAB TO COLLECT [POC] QIDACANDBED - Plan Plan:: ASSESSMENT AND PLAN - Acute cholecystitis with sepsis - sepsis has resolved, white blood cell count improving. Gangrenous gallbladder removed today with cholecystectomy. Patient stable postoperatively so far. -Continue IV fluids -Pain control -Antibiotic coverage with Pip/Tazo -Surgical consultation appreciated Stage III chronic kidney disease - patient did receive IV contrast because of the acute nature of his presentation. He will need additional hydration. -Repeat labs in the morning Alzheimer's dementia without behavioral disturbance - with acute infection and hospitalization he is at high risk for delirium and or confusion. -Melatonin at bedtime Diabetes mellitus type 2 - patient is currently on metformin and this will be on hold with nothing by mouth status. -Low-dose sliding scale insulin with Accu-Cheks Maintenance issues - - DVT prophylaxis - mechanical - GI prophylaxis - not indicated - Nutrition - advance diet as tolerated - Anderson catheter - placed in the emergency room for strict intake and output monitoring during acute illness, hopefully this can be removed tomorrow CODE STATUS - DNR/DNI Admission justification - This patient will be admitted for inpatient services and is medically appropriate meeting medical necessity for inpatient admission as outlined in my documentation. I reasonably expect the patient will require inpatient services that span a period time over 2 midnights. I reasonably expect this patient to be discharged or transferred within 96 hours [facility] Disposition - anticipate discharge back to the half-way after the hospital stay Primary care physician - Dr Kiran Altamirano M.D.
[2017-12-29] MEDS: Insulin Aspart 100 Units/ML 3 ML Pen SUBCUT SCH ×4 (11:34→21:09)
[2017-12-29] MEDS: HYDROmorphone 0.5 MG/0.5 ML Syringe IVPUSH PRN (14:15)
[2017-12-29] MEDS: Mirtazapine 15 MG Tab PO SCH ×2 (20:26→21:46)
[2017-12-30] MEDS: D5 1/2 NS w/ 20 mEq/L KCl 1,000 ML IV SCH ×3 (04:27→23:30)
[2017-12-30] MEDS: Piperacillin/Tazobactam/Dext 3.375 GM in Premix Bag 1 BAG IV SCH ×3 (05:35→17:27)
[2017-12-30] MEDS: HYDROmorphone 0.5 MG/0.5 ML Syringe IVPUSH PRN ×2 (06:37→21:13)
[2017-12-30] MEDS: Insulin Aspart 100 Units/ML 3 ML Pen SUBCUT SCH ×4 (08:02→20:51)
--- NOTE | 2017-12-30 09:42 | CR ---
Abdomen 2V AP Flat Upright HISTORY: Abdominal pain, vomiting. COMPARISON: CT scan 12/28/2017. FINDINGS: Moderate stool rectosigmoid level. Bowel gas pattern is nonobstructive. Right hip replaceme nt. No evidence for acute abdominal process. Please see CT scan report.
--- NOTE | 2017-12-30 11:11 | PCM.SURGPN ---
- General Info Date of Service: 12/30/17 Date of Surgery/Procedure: 12/29/17 POD#: 1 Post-Op Diagnosis: Acute gangrenous cholecystitis with cholelithiasis Functional Status: Reports: Other (Somnalent) - Review of Systems General: Reports: Other (Somnalent) HEENT: Reports: No Symptoms Pulmonary: Reports: No Symptoms Cardiovascular: Reports: No Symptoms Gastrointestinal: Reports: No Symptoms Genitourinary: Reports: No Symptoms Musculoskeletal: Reports: No Symptoms Skin: Reports: No Symptoms Neurological: Reports: No Symptoms Psychiatric: Reports: No Symptoms - Patient Data Vitals - Most Recent: Last Vital Signs Temp 98.7 F 12/30/17 10:18 Pulse 87 12/30/17 06:50 Resp 20 12/30/17 06:50 BP 123/64 12/30/17 06:50 Pulse Ox 85 L 12/30/17 06:50 Weight - Most Recent: 161 lb 6.054 oz I&O - Last 24 Hours: Intake & Output 12/29/17 12/30/17 12/30/17 22:59 06:59 14:59 Intake Total 980 1489 Output Total 220 910 40 Balance 760 579 -40 Lab Results Last 24 Hrs: Laboratory Results - last 24 hr 12/30/17 12/30/17 Range/Units 05:53 05:53 WBC 10.4 (4.5-11.0) K/uL RBC 3.59 L (4.30-5.90) M/uL Hgb 10.4 L (12.0-15.0) g/dL Hct 33.3 L (40.0-54.0) % MCV 93 (80-98) fL MCH 29 (27-31) pg MCHC 31 L (32-36) % Plt Count 225 (150-400) K/uL Sodium 144 (140-148) mmol/L Potassium 3.7 (3.6-5.2) mmol/L Chloride 110 H (100-108) mmol/L Carbon Dioxide 26 (21-32) mmol/L Anion Gap 11.7 (5.0-14.0) mmol/L BUN 36 H (7-18) mg/dL Creatinine 1.1 (0.8-1.3) mg/dL Est Cr Clr Drug Dosing 63.38 mL/min Estimated GFR (MDRD) > 60 (>60) Glucose 206 H (74-106) mg/dL Calcium 8.6 (8.5-10.1) mg/dL Total Bilirubin 0.6 (0.2-1.0) mg/dL AST 45 H D (15-37) U/L ALT 35 D (12-78) U/L Alkaline Phosphatase 56 (46-116) U/L Total Protein 6.0 L (6.4-8.2) g/dL Albumin 2.1 L (3.4-5.0) g/dL Globulin 3.9 H (2.3-3.5) g/dL Albumin/Globulin Ratio 0.5 L (1.2-2.2) Aaron Results Last 24 Hrs: Microbiology 12/29/17 08:40 Gram Stain - Final Peritoneal Fluid Wound Culture - Preliminary NO GROWTH AFTER 1 DAY Anaerobic Culture - Preliminary NO GROWTH AFTER 1 DAY 12/29/17 11:31 Gram Stain - Final Gallbladder Fluid - Bile Wound Culture - Preliminary NO GROWTH AFTER 1 DAY Anaerobic Culture - Preliminary NO GROWTH AFTER 1 DAY 12/28/17 16:33 Aerobic Blood Culture - Preliminary Blood - Arm, Right NO GROWTH AFTER 1 DAY Anaerobic Blood Culture - Preliminary NO GROWTH AFTER 1 DAY Med Orders - Current: Current Medications Acetaminophen (Tylenol) 650 mg PO Q4H PRN PRN Reason: Pain (Mild 1-3)/fever Last Admin: 12/29/17 02:55 Dose: 650 mg Albuterol (Proventil Neb Soln) 2.5 mg NEB Q4H PRN PRN Reason: Shortness Of Breath/wheezing Artificial Tears (Natural Balance Tears) 0 ml EYEBOTH QID PRN PRN Reason: Dry Eyes Enoxaparin Sodium (Lovenox) 40 mg SUBCUT DAILY [facility] Hydromorphone HCl (Dilaudid) 0.5 mg IVPUSH Q2H PRN PRN Reason: Pain Last Admin: 12/30/17 06:37 Dose: 0.5 mg Piperacillin/Tazobactam/ (Dextrose 3.375 gm/ Premix) 50 mls @ 100 mls/hr IV Q6H [facility] Last Admin: 12/30/17 05:35 Dose: 100 mls/hr Potassium Chloride/Dextrose/Sod Cl (D5 1/2 Ns W/ 20 Meq/L Kcl) 1,000 mls @ 125 mls/hr IV ASDIRECTED [facility] Last Admin: 12/30/17 04:27 Dose: 125 mls/hr Insulin Aspart (Novolog) 0 unit SUBCUT QIDACANDBED [facility]; Protocol Last Admin: 12/30/17 08:02 Dose: 2 unit Lorazepam (Ativan) 0.5 - 1 mg IVPUSH Q4H PRN PRN Reason: Nausea/Vomiting Melatonin (Melatonin) 9 mg PO BEDTIME [facility] Last Admin: 12/28/17 21:12 Dose: 9 mg Mirtazapine (Remeron) 15 mg PO BEDTIME [facility] Last Admin: 12/29/17 21:46 Dose: Not Given Ondansetron HCl (Zofran Odt) 4 mg PO Q6H PRN PRN Reason: Nausea able to take PO Ondansetron HCl (Zofran) 4 mg IV Q6H PRN PRN Reason: Nausea/Vomiting Oxycodone HCl (Oxycodone) 5 mg PO Q4H PRN PRN Reason: Pain Last Admin: 12/28/17 19:54 Dose: 5 mg Discontinued Medications Bupivacaine HCl (Marcaine 0.5%) Confirm Administered Dose 50 ml .ROUTE .STK-MED ONE Stop: 12/29/17 07:01 Last Admin: 12/29/17 08:51 Dose: 10 ml Cefoxitin Sodium (Mefoxin) Confirm Administered Dose 2 gm .ROUTE .STK-MED ONE Stop: 12/29/17 08:32 Ephedrine Sulfate (Ephedrine Sulfate) Confirm Administered Dose 50 mg .ROUTE .STK-MED ONE Stop: 12/29/17 08:49 Fentanyl (Sublimaze) Confirm Administered Dose 250 mcg .ROUTE .STK-MED ONE Stop: 12/29/17 08:06 Glycopyrrolate (Robinul) Confirm Administered Dose 1 mg .ROUTE .STK-MED ONE Stop: 12/29/17 08:06 Lactated Ringer's (Ringers, Lactated) 1,000 mls @ 1,000 mls/hr IV BOLUS ONE Stop: 12/28/17 16:17 Last Admin: 12/28/17 15:37 Dose: 1,000 mls/hr Lactated Ringer's (Ringers, Lactated) 1,000 mls @ 999 mls/hr IV BOLUS ONE Stop: 12/28/17 17:52 Last Admin: 12/28/17 16:56 Dose: 999 mls/hr Sodium Chloride (Normal Saline) 80 mls @ 3.5 mls/sec IV ONETIME ONE Stop: 12/28/17 17:02 Last Admin: 12/28/17 17:30 Dose: 2.5 mls/sec Piperacillin Sod/Tazobactam (Sod 3.375 gm/ Sodium Chloride) 50 mls @ 100 mls/ hr IV Q6H [facility] Last Admin: 12/29/17 06:33 Dose: 100 mls/hr Sodium Chloride (Normal Saline) 1,000 mls @ 125 mls/hr IV ASDIRECTED [facility] Last Admin: 12/29/17 03:59 Dose: 125 mls/hr Sodium Chloride (Normal Saline) Confirm Administered Dose 10 mls @ as directed .ROUTE .STK-MED ONE Stop: 12/29/17 08:32 Sodium Chloride (Normal Saline) Confirm Administered Dose 500 mls @ as directed .ROUTE .STK-MED ONE Stop: 12/29/17 08:37 Sodium Chloride (Normal Saline) Confirm Administered Dose 500 mls @ as directed .ROUTE .STK-MED ONE Stop: 12/29/17 08:37 Iopamidol (Isovue-300 (61%)) 100 ml IV . DIRECTED [facility] Last Admin: 12/28/17 17:30 Dose: 100 ml Lactated Ringer's (Ringers, Lactated) 1,000 ml IRR .STK-MED ONE Stop: 12/29/17 09:01 Last Admin: 12/29/17 09:00 Dose: 1,000 ml Lidocaine/Epinephrine (Xylocaine 1% With Epinephrine 1:100,000) Confirm Administered Dose 50 ml .ROUTE .STK-MED ONE Stop: 12/29/17 07:01 Last Admin: 12/29/17 08:51 Dose: 10 ml Metoclopramide HCl (Reglan) 10 mg IVPUSH ONETIME ONE Stop: 12/28/17 15:19 Last Admin: 12/28/17 15:38 Dose: 10 mg Neostigmine Methylsulfate (Neostigmine) Confirm Administered Dose 5 mg .ROUTE .STK-MED ONE Stop: 12/29/17 08:06 Ondansetron HCl (Zofran) Confirm Administered Dose 4 mg .ROUTE .STK-MED ONE Stop: 12/29/17 08:06 Pantoprazole Sodium (Protonix Iv) 40 mg IV ONETIME ONE Stop: 12/28/17 19:02 Last Admin: 12/28/17 19:45 Dose: 40 mg Propofol (Diprivan 20 Ml) Confirm Administered Dose 200 mg .ROUTE .STK-MED ONE Stop: 12/29/17 08:06 Rocuronium [place] (Zemuron) Confirm Administered Dose 50 mg .ROUTE .STK-MED ONE Stop: 12/29/17 08:06 Sodium Chloride (Saline Flush) 10 ml FLUSH ONETIME ONE Stop: 12/28/17 17:02 Last Admin: 12/28/17 17:30 Dose: 10 ml - Exam Wound/Incisions: Healing Well, No Drainage (Other than in his JOHNY.) General: Lethargic Lungs: Clear to Auscultation, Normal Respiratory Effort Cardiovascular: Regular Rate, Regular Rhythm GI/Abdominal Exam: Abnormal Bowel Sounds (Hypoactive) Extremities: Normal Inspection Skin: Warm, Dry, Intact Psy/Mental Status: Other (Somnalent) - Problem List & Annotations (1) Acute cholecystitis SNOMED Code(s): 10589767 Code(s): K81.0 - ACUTE CHOLECYSTITIS Status: Acute Current Visit: Yes - Problem List Review Problem List Initiated/Reviewed/Updated: Yes - My Orders Last 24 Hours: Active Orders 24 hr Category Date Time Status Ambulate [RC] ASDIRECTED Care 12/29/17 17:20 Active Communication Order [RC] ROUTINE Care 12/29/17 11:31 Active DC Anderson Catheter [Urinary Catheter Removal] [RC] Per Care 12/30/17 11:05 Ordered Unit Routine Drain Management [RC] ASDIRECTED Care 12/29/17 10:49 Active Head of Bed Elevation [RC] CONTINUOUS Care 12/29/17 17:20 Active Pneumonia Education [RC] UPON Care 12/29/17 17:20 Active RT Incentive Spirometry [RC] Q1HWA Care 12/29/17 17:20 Active Turn, Cough, Deep Breathe [RC] Q1HWA Care 12/29/17 17:20 Active Up to Chair [RC] TIDMEALS Care 12/29/17 17:20 Active Consult to Respiratory Therapy [Respiratory Care Assess Cons 12/29/17 17:22 Active and Treatment] [CONS] Routine Respiratory Care Assess and Treatment [CONS] Routine Cons 12/29/17 17:20 Active Advance Diet Instructions [DIET] Diet 12/29/17 Lunch Active CBC W/O DIFF,HEMOGRAM [HEME] DAILY Lab 12/31/17 05:11 Ordered CBC W/O DIFF,HEMOGRAM [HEME] DAILY Lab 01/01/18 05:11 Ordered CBC W/O DIFF,HEMOGRAM [HEME] DAILY Lab 01/02/18 05:11 Ordered CBC W/O DIFF,HEMOGRAM [HEME] DAILY Lab 01/03/18 05:11 Ordered CBC W/O DIFF,HEMOGRAM [HEME] DAILY Lab 01/04/18 05:11 Ordered COMPREHENSIVE METABOLIC PN,CMP [CHEM] DAILY Lab 12/31/17 05:11 Ordered COMPREHENSIVE METABOLIC PN,CMP [CHEM] DAILY Lab 01/01/18 05:11 Ordered COMPREHENSIVE METABOLIC PN,CMP [CHEM] DAILY Lab 01/02/18 05:11 Ordered COMPREHENSIVE METABOLIC PN,CMP [CHEM] DAILY Lab 01/03/18 05:11 Ordered COMPREHENSIVE METABOLIC PN,CMP [CHEM] DAILY Lab 01/04/18 05:11 Ordered CULTURE ANAEROBIC [RM] Routine Lab 12/29/17 11:31 Results CULTURE WOUND + SMEAR [RM] Routine Lab 12/29/17 11:31 Results GLUCOSE POC LAB TO COLLECT [POC] QIDACANDBED Lab 12/30/17 11:30 Ordered GLUCOSE POC LAB TO COLLECT [POC] QIDACANDBED Lab 12/30/17 16:30 Ordered GLUCOSE POC LAB TO COLLECT [POC] QIDACANDBED Lab 12/30/17 21:00 Ordered GLUCOSE POC LAB TO COLLECT [POC] QIDACANDBED Lab 12/31/17 07:30 Ordered GLUCOSE POC LAB TO COLLECT [POC] QIDACANDBED Lab 12/31/17 11:30 Ordered GLUCOSE POC LAB TO COLLECT [POC] QIDACANDBED Lab 12/31/17 16:30 Ordered GLUCOSE POC LAB TO COLLECT [POC] QIDACANDBED Lab 12/31/17 21:00 Ordered GLUCOSE POC LAB TO COLLECT [POC] QIDACANDBED Lab 01/01/18 07:30 Ordered GLUCOSE POC LAB TO COLLECT [POC] QIDACANDBED Lab 01/01/18 11:30 Ordered GLUCOSE POC LAB TO COLLECT [POC] QIDACANDBED Lab 01/01/18 16:30 Ordered GLUCOSE POC LAB TO COLLECT [POC] QIDACANDBED Lab 01/01/18 21:00 Ordered D5 1/2 NS w/ 20 mEq/L KCl 1,000 ml Med 12/29/17 11:00 Active IV ASDIRECTED Enoxaparin [Lovenox] Med 12/30/17 11:15 Ordered 40 mg SUBCUT DAILY Piperacillin/Tazobactam/Dext [Zosyn in Dextrose Iso- Med 12/29/17 12:00 Active Osmotic 3.375 GM] 3.375 gm Premix Bag 1 bag IV Q6H Oral Care [OM.PC] BID Oth 12/29/17 17:30 Ordered Oral Care [OM.PC] BID Oth 12/30/17 17:30 Ordered Oral Care [OM.PC] BID Oth 12/31/17 17:30 Ordered Oral Care [OM.PC] BID Oth 01/01/18 17:30 Ordered Oral Care [OM.PC] BID Oth 01/02/18 17:30 Ordered Oral Care [OM.PC] BID Oth 01/03/18 17:30 Ordered Oral Care [OM.PC] BID Oth 01/04/18 17:30 Ordered Oral Care [OM.PC] BID Oth 01/05/18 17:30 Ordered Oral Care [OM.PC] BID Oth 01/06/18 17:30 Ordered Oral Care [OM.PC] BID Oth 01/07/18 17:30 Ordered Medication Orders Acetaminophen (Tylenol) 650 mg PO Q4H PRN PRN Reason: Pain (Mild 1-3)/fever Last Admin: 12/29/17 02:55 Dose: 650 mg Albuterol (Proventil Neb Soln) 2.5 mg NEB Q4H PRN PRN Reason: Shortness Of Breath/wheezing Artificial Tears (Natural Balance Tears) 0 ml EYEBOTH QID PRN PRN Reason: Dry Eyes Enoxaparin Sodium (Lovenox) 40 mg SUBCUT DAILY [facility] Hydromorphone HCl (Dilaudid) 0.5 mg IVPUSH Q2H PRN PRN Reason: Pain Last Admin: 12/30/17 06:37 Dose: 0.5 mg Admin: 12/29/17 14:15 Dose: 0.5 mg Piperacillin/Tazobactam/ (Dextrose 3.375 gm/ Premix) 50 mls @ 100 mls/hr IV Q6H [facility] Last Admin: 12/30/17 05:35 Dose: 100 mls/hr Admin: 12/29/17 23:25 Dose: 100 mls/hr Admin: 12/29/17 17:08 Dose: 100 mls/hr Admin: 12/29/17 11:14 Dose: 100 mls/hr Potassium Chloride/Dextrose/Sod Cl (D5 1/2 Ns W/ 20 Meq/L Kcl) 1,000 mls @ 125 mls/hr IV ASDIRECTED [facility] Last Admin: 12/30/17 04:27 Dose: 125 mls/hr Infusion: 12/30/17 04:23 Dose: 125 mls/hr Admin: 12/29/17 20:23 Dose: 125 mls/hr Infusion: 12/29/17 19:04 Dose: 125 mls/hr Admin: 12/29/17 11:04 Dose: 125 mls/hr Insulin Aspart (Novolog) 0 unit SUBCUT QIDACANDBED [facility]; Protocol Last Admin: 12/30/17 08:02 Dose: 2 unit Admin: 12/29/17 21:09 Dose: 2 unit Admin: 12/29/17 17:04 Dose: 2 unit Admin: 12/29/17 11:35 Dose: 2 unit Admin: 12/29/17 11:34 Dose: Not Given Admin: 12/28/17 20:52 Dose: 1 unit Lorazepam (Ativan) 0.5 - 1 mg IVPUSH Q4H PRN PRN Reason: Nausea/Vomiting Melatonin (Melatonin) 9 mg PO BEDTIME [facility] Last Admin: 12/28/17 21:12 Dose: 9 mg Mirtazapine (Remeron) 15 mg PO BEDTIME [facility] Last Admin: 12/29/17 21:46 Dose: Admin: 12/28/17 21:12 Dose: 15 mg Ondansetron HCl (Zofran Odt) 4 mg PO Q6H PRN PRN Reason: Nausea able to take PO Ondansetron HCl (Zofran) 4 mg IV Q6H PRN PRN Reason: Nausea/Vomiting Oxycodone HCl (Oxycodone) 5 mg PO Q4H PRN PRN Reason: Pain Last Admin: 12/28/17 19:54 Dose: 5 mg - Assessment Assessment (Free Text/Narrative):: He is arousable and can discuss his service in the [place]. His WBC is improved. He has a normal T. Bili. - Plan Plan (Free Text/Narrative):: D/C Foley. Jones.
[2017-12-30] MEDS: Acetaminophen 325 MG Tab PO PRN (12:04)
--- NOTE | 2017-12-30 12:41 | PCM.PN ---
- General Info Date of Service: 12/30/17 Subjective Update: This patient is a 67-year-old gentleman who was admitted with acute cholecystitis and sepsis. He was taken to the operating room yesterday and underwent a laparoscopic cholecystectomy. He has done well since surgery and has today become more alert and interactive. White blood cell count is normal, vital signs have been stable, and he has been afebrile. - Review of Systems General: Denies: Fever, Chills Pulmonary: Reports: No Symptoms Cardiovascular: Reports: No Symptoms Gastrointestinal: Reports: Abdominal Pain. Denies: Difficulty Swallowing, Nausea, Vomiting - Patient Data Vitals - Most Recent: Last Vital Signs Temp 98.7 F 12/30/17 10:18 Pulse 87 12/30/17 06:50 Resp 20 12/30/17 06:50 BP 123/64 12/30/17 06:50 Pulse Ox 85 L 12/30/17 06:50 Weight - Most Recent: 161 lb 6.054 oz I&O - Last 24 Hours: Intake & Output 12/29/17 12/30/17 12/30/17 22:59 06:59 14:59 Intake Total 980 1489 30 Output Total 220 910 290 Balance 760 579 -260 Lab Results Last 24 Hours: Laboratory Results - last 24 hr 12/30/17 12/30/17 Range/Units 05:53 05:53 WBC 10.4 (4.5-11.0) K/uL RBC 3.59 L (4.30-5.90) M/uL Hgb 10.4 L (12.0-15.0) g/dL Hct 33.3 L (40.0-54.0) % MCV 93 (80-98) fL MCH 29 (27-31) pg MCHC 31 L (32-36) % Plt Count 225 (150-400) K/uL Sodium 144 (140-148) mmol/L Potassium 3.7 (3.6-5.2) mmol/L Chloride 110 H (100-108) mmol/L Carbon Dioxide 26 (21-32) mmol/L Anion Gap 11.7 (5.0-14.0) mmol/L BUN 36 H (7-18) mg/dL Creatinine 1.1 (0.8-1.3) mg/dL Est Cr Clr Drug Dosing 63.38 mL/min Estimated GFR (MDRD) > 60 (>60) Glucose 206 H (74-106) mg/dL Calcium 8.6 (8.5-10.1) mg/dL Total Bilirubin 0.6 (0.2-1.0) mg/dL AST 45 H D (15-37) U/L ALT 35 D (12-78) U/L Alkaline Phosphatase 56 (46-116) U/L Total Protein 6.0 L (6.4-8.2) g/dL Albumin 2.1 L (3.4-5.0) g/dL Globulin 3.9 H (2.3-3.5) g/dL Albumin/Globulin Ratio 0.5 L (1.2-2.2) Aaron Results Last 24 Hours: Microbiology 12/29/17 08:40 Gram Stain - Final Peritoneal Fluid Wound Culture - Preliminary NO GROWTH AFTER 1 DAY Anaerobic Culture - Preliminary NO GROWTH AFTER 1 DAY 12/29/17 11:31 Gram Stain - Final Gallbladder Fluid - Bile Wound Culture - Preliminary NO GROWTH AFTER 1 DAY Anaerobic Culture - Preliminary NO GROWTH AFTER 1 DAY 12/28/17 16:33 Aerobic Blood Culture - Preliminary Blood - Arm, Right NO GROWTH AFTER 1 DAY Anaerobic Blood Culture - Preliminary NO GROWTH AFTER 1 DAY Med Orders - Current: Current Medications Acetaminophen (Tylenol) 650 mg PO Q4H PRN PRN Reason: Pain (Mild 1-3)/fever Last Admin: 12/30/17 12:04 Dose: 650 mg Albuterol (Proventil Neb Soln) 2.5 mg NEB Q4H PRN PRN Reason: Shortness Of Breath/wheezing Artificial Tears (Natural Balance Tears) 0 ml EYEBOTH QID PRN PRN Reason: Dry Eyes Enoxaparin Sodium (Lovenox) 40 mg SUBCUT Q24H [facility] Hydromorphone HCl (Dilaudid) 0.5 mg IVPUSH Q2H PRN PRN Reason: Pain Last Admin: 12/30/17 06:37 Dose: 0.5 mg Piperacillin/Tazobactam/ (Dextrose 3.375 gm/ Premix) 50 mls @ 100 mls/hr IV Q6H [facility] Last Admin: 12/30/17 11:43 Dose: 100 mls/hr Potassium Chloride/Dextrose/Sod Cl (D5 1/2 Ns W/ 20 Meq/L Kcl) 1,000 mls @ 125 mls/hr IV ASDIRECTED [facility] Last Admin: 12/30/17 04:27 Dose: 125 mls/hr Insulin Aspart (Novolog) 0 unit SUBCUT QIDACANDBED [facility]; Protocol Last Admin: 12/30/17 11:44 Dose: 2 unit Lorazepam (Ativan) 0.5 - 1 mg IVPUSH Q4H PRN PRN Reason: Nausea/Vomiting Melatonin (Melatonin) 9 mg PO BEDTIME [facility] Last Admin: 12/28/17 21:12 Dose: 9 mg Mirtazapine (Remeron) 15 mg PO BEDTIME [facility] Last Admin: 12/29/17 21:46 Dose: Not Given Ondansetron HCl (Zofran Odt) 4 mg PO Q6H PRN PRN Reason: Nausea able to take PO Ondansetron HCl (Zofran) 4 mg IV Q6H PRN PRN Reason: Nausea/Vomiting Oxycodone HCl (Oxycodone) 5 mg PO Q4H PRN PRN Reason: Pain Last Admin: 12/28/17 19:54 Dose: 5 mg Discontinued Medications Bupivacaine HCl (Marcaine 0.5%) Confirm Administered Dose 50 ml .ROUTE .STK-MED ONE Stop: 12/29/17 07:01 Last Admin: 12/29/17 08:51 Dose: 10 ml Cefoxitin Sodium (Mefoxin) Confirm Administered Dose 2 gm .ROUTE .STK-MED ONE Stop: 12/29/17 08:32 Ephedrine Sulfate (Ephedrine Sulfate) Confirm Administered Dose 50 mg .ROUTE .STK-MED ONE Stop: 12/29/17 08:49 Fentanyl (Sublimaze) Confirm Administered Dose 250 mcg .ROUTE .STK-MED ONE Stop: 12/29/17 08:06 Glycopyrrolate (Robinul) Confirm Administered Dose 1 mg .ROUTE .STK-MED ONE Stop: 12/29/17 08:06 Lactated Ringer's (Ringers, Lactated) 1,000 mls @ 1,000 mls/hr IV BOLUS ONE Stop: 12/28/17 16:17 Last Admin: 12/28/17 15:37 Dose: 1,000 mls/hr Lactated Ringer's (Ringers, Lactated) 1,000 mls @ 999 mls/hr IV BOLUS ONE Stop: 12/28/17 17:52 Last Admin: 12/28/17 16:56 Dose: 999 mls/hr Sodium Chloride (Normal Saline) 80 mls @ 3.5 mls/sec IV ONETIME ONE Stop: 12/28/17 17:02 Last Admin: 12/28/17 17:30 Dose: 2.5 mls/sec Piperacillin Sod/Tazobactam (Sod 3.375 gm/ Sodium Chloride) 50 mls @ 100 mls/ hr IV Q6H [facility] Last Admin: 12/29/17 06:33 Dose: 100 mls/hr Sodium Chloride (Normal Saline) 1,000 mls @ 125 mls/hr IV ASDIRECTED [facility] Last Admin: 12/29/17 03:59 Dose: 125 mls/hr Sodium Chloride (Normal Saline) Confirm Administered Dose 10 mls @ as directed .ROUTE .STK-MED ONE Stop: 12/29/17 08:32 Sodium Chloride (Normal Saline) Confirm Administered Dose 500 mls @ as directed .ROUTE .STK-MED ONE Stop: 12/29/17 08:37 Sodium Chloride (Normal Saline) Confirm Administered Dose 500 mls @ as directed .ROUTE .STK-MED ONE Stop: 12/29/17 08:37 Iopamidol (Isovue-300 (61%)) 100 ml IV . DIRECTED [facility] Last Admin: 12/28/17 17:30 Dose: 100 ml Lactated Ringer's (Ringers, Lactated) 1,000 ml IRR .STK-MED ONE Stop: 12/29/17 09:01 Last Admin: 12/29/17 09:00 Dose: 1,000 ml Lidocaine/Epinephrine (Xylocaine 1% With Epinephrine 1:100,000) Confirm Administered Dose 50 ml .ROUTE .STK-MED ONE Stop: 12/29/17 07:01 Last Admin: 12/29/17 08:51 Dose: 10 ml Metoclopramide HCl (Reglan) 10 mg IVPUSH ONETIME ONE Stop: 12/28/17 15:19 Last Admin: 12/28/17 15:38 Dose: 10 mg Neostigmine Methylsulfate (Neostigmine) Confirm Administered Dose 5 mg .ROUTE .STK-MED ONE Stop: 12/29/17 08:06 Ondansetron HCl (Zofran) Confirm Administered Dose 4 mg .ROUTE .STK-MED ONE Stop: 12/29/17 08:06 Pantoprazole Sodium (Protonix Iv) 40 mg IV ONETIME ONE Stop: 12/28/17 19:02 Last Admin: 12/28/17 19:45 Dose: 40 mg Propofol (Diprivan 20 Ml) Confirm Administered Dose 200 mg .ROUTE .STK-MED ONE Stop: 12/29/17 08:06 Rocuronium [place] (Zemuron) Confirm Administered Dose 50 mg .ROUTE .STK-MED ONE Stop: 12/29/17 08:06 Sodium Chloride (Saline Flush) 10 ml FLUSH ONETIME ONE Stop: 12/28/17 17:02 Last Admin: 12/28/17 17:30 Dose: 10 ml - Exam Quality Assessment: DVT Prophylaxis General: Alert, Cooperative, Mild Distress Lungs: Clear to Auscultation, Normal Respiratory Effort Cardiovascular: Regular Rate, Regular Rhythm GI/Abdominal Exam: Soft, No Organomegaly, Tender. No: Distended, Guarding, Rigid, Rebound Extremities: Non-Tender, No Pedal Edema Skin: Warm, Dry - Problem List Review Problem List Initiated/Reviewed/Updated: Yes - Plan Plan:: ASSESSMENT AND PLAN - Acute cholecystitis with sepsis - sepsis has resolved, white blood cell count has normalized. Gangrenous gallbladder removed yesterday with cholecystectomy. -Continue IV fluids, saline lock when taking oral fluids -Pain control -Antibiotic coverage with Pip/Tazo -Postoperative care per Dr. Muhammad Stage III chronic kidney disease - patient did receive IV contrast because of the acute nature of his presentation. He will need additional hydration. -Repeat labs in the morning Alzheimer's dementia without behavioral disturbance - with acute infection and hospitalization he is at high risk for delirium and or confusion. -Melatonin at bedtime Diabetes mellitus type 2 - resume metformin in the next day or 2 when stable -Low-dose sliding scale insulin with Accu-Cheks Maintenance issues - - DVT prophylaxis - mechanical - GI prophylaxis - not indicated - Nutrition - advance diet as tolerated - Anderson catheter - placed in the emergency room for strict intake and output monitoring during acute illness, hopefully this can be removed tomorrow CODE STATUS - DNR/DNI Admission justification - This patient will be admitted for inpatient services and is medically appropriate meeting medical necessity for inpatient admission as outlined in my documentation. I reasonably expect the patient will require inpatient services that span a period time over 2 midnights. I reasonably expect this patient to be discharged or transferred within 96 hours after admission to the [facility]. Disposition - anticipate discharge back to the long term after the hospital stay Primary care physician - Dr Beck
[2017-12-30] MEDS: Enoxaparin 40 MG/0.4 ML Syringe SUBCUT SCH (13:40)
[2017-12-30] MEDS: oxyCODONE 5 MG Tab PO PRN (13:47)
[2017-12-30] MEDS: Acetaminophen Soln 650 MG/20.3 ML UD Cup PO PRN (18:25)
[2017-12-30] MEDS: Melatonin 3 MG Tab PO SCH ×2 (20:48→21:12)
[2017-12-30] MEDS: Mirtazapine 15 MG Tab PO SCH ×2 (20:52→21:13)
[2017-12-30] MEDS: Ondansetron 4 MG/2 ML SDV IV PRN (20:58)
--- NOTE | 2017-12-30 23:44 | OR ---
DATE OF PROCEDURE: 12/29/2017 PREOPERATIVE DIAGNOSIS: Acute cholecystitis. POSTOPERATIVE DIAGNOSIS: Acute gangrenous cholecystitis with cholelithiasis. PROCEDURE: Laparoscopic cholecystectomy. ANESTHESIA: General endotracheal. INDICATION: This is a 67-year-old white male, who has been experiencing a couple of days of progressive abdominal pain. On the , this became quite severe causing him to come to the emergency room. He was admitted, appeared to be septic. He had a white count of 27,000. He was admitted after CAT scan was consistent with acute cholecystitis. He was given IV antibiotics and fluids and the next day felt safe to be taken to the operating room for treatment of acute cholecystitis. His liver functions were unremarkable except for slightly elevated bilirubin at the time of admission of 1.1 which became normal at 0.8 at the time of surgery. I counseled his for surgery, plan on doing an intraoperative cholangiogram. She gave her informed consent to proceed. DESCRIPTION OF PROCEDURE: After adequate general endotracheal anesthesia was obtained, the patient's abdomen was prepped and draped in the usual sterile fashion. He already had a Anderson catheter in place, leg compression stockings were in place and used during the entire procedure. Time-out was held. An infraumbilical semicircular incision was made. Under direct vision, a 12-mm port was introduced into the abdomen through this infraumbilical incision. The camera was introduced into the abdomen and the abdomen was insufflated to a pressure of 15 mmHg with carbon dioxide. No evidence of intraabdominal injury was seen. Under direct vision, a 12-mm port was placed in the epigastrium and a 5-mm port was placed in the right lower quadrant. We noted there was heaped up omentum in the right upper quadrant with some stringy fibrinous exudate connecting the omentum to the anterior abdominal wall in this area. These were flimsy and easily came down. The omentum was pulled away from the gallbladder to reveal a gangrenous cholecystitis. It was stuck to the gallbladder in areas quite firmly and we had to carefully remove it. We were able to dissect it down to the cystic duct. The gallbladder was noted to be quite tense, and during this process, we had to open it to decompress it to be able to deal with it. We placed a clip up on the gallbladder at the cystic duct and made a small ductotomy, attempted to place a cholangiocatheter but this was not successful. The cholangiocatheter was removed, the duct was clipped 3 times adjacent to the ductotomy and divided. We briefly searched for the cystic artery, but the area was so thickened that we carefully dissected the gallbladder off the gallbladder fossa. During this process, we did find the cystic artery and clipped it up high up on the gallbladder and divided it. The gallbladder was then completely removed from the gallbladder fossa, placed in a sample retrieval bag and elevated up through the anterior abdominal wall via the epigastric port site. It was noted to contain multiple small black stones. It should be noted that when we entered the abdomen, we did also encounter some fluid which was sent for Gram stain and culture and we cultured the gallbladder. The epigastric port was re-introduced back into the abdomen. The gallbladder bed was irrigated and suctioned dry. After we achieved hemostasis, we decided to leave a piece of Surgicel in the gallbladder fossa and this was done. A Dread-Denise drain was obtained and brought out through the 5-mm port site in the right lower quadrant. This was placed up in the area of the gallbladder bed, all then looked well. The epigastric fascial defect was closed with an 0 Vicryl stitch using the fascial closure device. The infraumbilical port was removed with an interrupted stitch of 0 Vicryl used to close this fascial defect. Lidocaine 1% with epinephrine in a 50:50 mix with 0.5% Marcaine was infiltrated about all incisions. 2-0 silk was used to anchor the Dread-Denise drain in place. 4-0 Vicryl was used to close the skin of the infraumbilical and epigastric incisions. Dermabond was applied and a sterile dressing. Anesthesia was reversed. He was extubated and brought to recovery room in fair condition. Niranjan Muhammad MD /[id number]
[2017-12-30] MEDS ORDERED: Lidocaine 2% Jelly 10 ML Urojet MUCMEM ONE (23:59)
[2017-12-31] MEDS: Piperacillin/Tazobactam/Dext 3.375 GM in Premix Bag 1 BAG IV SCH ×4 (00:23→20:25)
[2017-12-31] MEDS: HYDROmorphone 0.5 MG/0.5 ML Syringe IVPUSH PRN ×2 (02:38→06:31)
--- NOTE | 2017-12-31 06:42 | PCM.SURGPN ---
- General Info Date of Service: 12/31/17 Date of Surgery/Procedure: 12/29/17 POD#: 2 Post-Op Diagnosis: Acute gangrenous cholecystitis with cholelithiasis Functional Status: Reports: Pain Controlled - Review of Systems General: Reports: No Symptoms, Other (More alert. Could not void last night so Anderson put back in. He is maintaining adequate UOP. ) HEENT: Reports: No Symptoms Pulmonary: Reports: No Symptoms Cardiovascular: Reports: No Symptoms Gastrointestinal: Reports: No Symptoms Genitourinary: Reports: No Symptoms Musculoskeletal: Reports: No Symptoms Skin: Reports: No Symptoms Neurological: Reports: No Symptoms Psychiatric: Reports: No Symptoms - Patient Data Vitals - Most Recent: Last Vital Signs Temp 96.3 F 12/31/17 02:30 Pulse 67 12/31/17 02:30 Resp 16 12/31/17 02:30 BP 129/67 12/31/17 02:30 Pulse Ox 100 12/31/17 02:30 Weight - Most Recent: 161 lb 6.054 oz I&O - Last 24 Hours: Intake & Output 12/30/17 12/30/17 12/31/17 14:59 22:59 06:59 Intake Total 30 1170 1492 Output Total 290 30 495 Balance -260 1140 997 Lab Results Last 24 Hrs: Laboratory Results - last 24 hr 12/31/17 12/31/17 Range/Units 04:55 04:55 WBC 15.3 H (4.5-11.0) K/uL RBC 3.22 L (4.30-5.90) M/uL Hgb 9.4 L (12.0-15.0) g/dL Hct 29.9 L (40.0-54.0) % MCV 93 (80-98) fL MCH 29 (27-31) pg MCHC 31 L (32-36) % Plt Count 248 (150-400) K/uL Sodium 143 (140-148) mmol/L Potassium 3.5 L (3.6-5.2) mmol/L Chloride 108 (100-108) mmol/L Carbon Dioxide 27 (21-32) mmol/L Anion Gap 11.5 (5.0-14.0) mmol/L BUN 27 H (7-18) mg/dL Creatinine 1.0 (0.8-1.3) mg/dL Est Cr Clr Drug Dosing 69.48 mL/min Estimated GFR (MDRD) > 60 (>60) Glucose 219 H (74-106) mg/dL Calcium 7.9 L (8.5-10.1) mg/dL Total Bilirubin 0.4 (0.2-1.0) mg/dL AST 102 H D (15-37) U/L ALT 71 D (12-78) U/L Alkaline Phosphatase 72 (46-116) U/L Total Protein 5.6 L (6.4-8.2) g/dL Albumin 1.9 L (3.4-5.0) g/dL Globulin 3.7 H (2.3-3.5) g/dL Albumin/Globulin Ratio 0.5 L (1.2-2.2) Aaron Results Last 24 Hrs: Microbiology 12/29/17 11:31 Gram Stain - Final Gallbladder Fluid - Bile Wound Culture - Preliminary NO GROWTH AFTER 2 DAYS Anaerobic Culture - Preliminary NO GROWTH AFTER 2 DAYS 12/29/17 08:40 Gram Stain - Final Peritoneal Fluid Wound Culture - Preliminary NO GROWTH AFTER 2 DAYS Anaerobic Culture - Preliminary NO GROWTH AFTER 2 DAYS 12/28/17 16:33 Aerobic Blood Culture - Preliminary Blood - Arm, Right NO GROWTH AFTER 2 DAYS Anaerobic Blood Culture - Preliminary NO GROWTH AFTER 2 DAYS Med Orders - Current: Current Medications Acetaminophen (Tylenol) 650 mg PO Q4H PRN PRN Reason: PAIN Last Admin: 12/30/17 18:25 Dose: 650 mg Albuterol (Proventil Neb Soln) 2.5 mg NEB Q4H PRN PRN Reason: Shortness Of Breath/wheezing Artificial Tears (Natural Balance Tears) 0 ml EYEBOTH QID PRN PRN Reason: Dry Eyes Enoxaparin Sodium (Lovenox) 40 mg SUBCUT Q24H [place] Last Admin: 12/30/17 13:40 Dose: 40 mg Hydromorphone HCl (Dilaudid) 0.5 mg IVPUSH Q2H PRN PRN Reason: Pain Last Admin: 12/31/17 06:31 Dose: 0.5 mg Piperacillin/Tazobactam/ (Dextrose 3.375 gm/ Premix) 50 mls @ 100 mls/hr IV Q6H [place] Last Admin: 12/31/17 05:39 Dose: 100 mls/hr Potassium Chloride/Dextrose/Sod Cl (D5 1/2 Ns W/ 20 Meq/L Kcl) 1,000 mls @ 125 mls/hr IV ASDIRECTED [facility] [place] Last Admin: 12/30/17 23:30 Dose: 125 mls/hr Insulin Aspart (Novolog) 0 unit SUBCUT QIDACANDBED [facility] [place]; Protocol Last Admin: 12/30/17 20:51 Dose: 2 unit Lorazepam (Ativan) 0.5 - 1 mg IVPUSH Q4H PRN PRN Reason: Nausea/Vomiting Melatonin (Melatonin) 9 mg PO BEDTIME [facility] [place] Last Admin: 12/30/17 21:12 Dose: Not Given Mirtazapine (Remeron) 15 mg PO BEDTIME [facility] [place] Last Admin: 12/30/17 21:13 Dose: Not Given Ondansetron HCl (Zofran Odt) 4 mg PO Q6H PRN PRN Reason: Nausea able to take PO Ondansetron HCl (Zofran) 4 mg IV Q6H PRN PRN Reason: Nausea/Vomiting Last Admin: 12/30/17 20:58 Dose: 4 mg Oxycodone HCl (Oxycodone) 5 mg PO Q4H PRN PRN Reason: Pain Last Admin: 12/30/17 13:47 Dose: 5 mg Discontinued Medications Acetaminophen (Tylenol) 650 mg PO Q4H PRN PRN Reason: Pain (Mild 1-3)/fever Last Admin: 12/30/17 12:04 Dose: 650 mg Bupivacaine HCl (Marcaine 0.5%) Confirm Administered Dose 50 ml .ROUTE .STK-MED ONE Stop: 12/29/17 07:01 Last Admin: 12/29/17 08:51 Dose: 10 ml Cefoxitin Sodium (Mefoxin) Confirm Administered Dose 2 gm .ROUTE .STK-MED ONE Stop: 12/29/17 08:32 Ephedrine Sulfate (Ephedrine Sulfate) Confirm Administered Dose 50 mg .ROUTE .STK-MED ONE Stop: 12/29/17 08:49 Fentanyl (Sublimaze) Confirm Administered Dose 250 mcg .ROUTE .STK-MED ONE Stop: 12/29/17 08:06 Glycopyrrolate (Robinul) Confirm Administered Dose 1 mg .ROUTE .STK-MED ONE Stop: 12/29/17 08:06 Lactated Ringer's (Ringers, Lactated) 1,000 mls @ 1,000 mls/hr IV BOLUS ONE Stop: 12/28/17 16:17 Last Admin: 12/28/17 15:37 Dose: 1,000 mls/hr Lactated Ringer's (Ringers, Lactated) 1,000 mls @ 999 mls/hr IV BOLUS ONE Stop: 12/28/17 17:52 Last Admin: 12/28/17 16:56 Dose: 999 mls/hr Sodium Chloride (Normal Saline) 80 mls @ 3.5 mls/sec IV ONETIME ONE Stop: 12/28/17 17:02 Last Admin: 12/28/17 17:30 Dose: 2.5 mls/sec Piperacillin Sod/Tazobactam (Sod 3.375 gm/ Sodium Chloride) 50 mls @ 100 mls/ hr IV Q6H [facility] [place] Last Admin: 12/29/17 06:33 Dose: 100 mls/hr Sodium Chloride (Normal Saline) 1,000 mls @ 125 mls/hr IV ASDIRECTED [facility] [place] Last Admin: 12/29/17 03:59 Dose: 125 mls/hr Sodium Chloride (Normal Saline) Confirm Administered Dose 10 mls @ as directed .ROUTE .STK-MED ONE Stop: 12/29/17 08:32 Sodium Chloride (Normal Saline) Confirm Administered Dose 500 mls @ as directed .ROUTE .STK-MED ONE Stop: 12/29/17 08:37 Sodium Chloride (Normal Saline) Confirm Administered Dose 500 mls @ as directed .ROUTE .STK-MED ONE Stop: 12/29/17 08:37 Iopamidol (Isovue-300 (61%)) 100 ml IV . DIRECTED [facility] [place] Last Admin: 12/28/17 17:30 Dose: 100 ml Lactated Ringer's (Ringers, Lactated) 1,000 ml IRR .STK-MED ONE Stop: 12/29/17 09:01 Last Admin: 12/29/17 09:00 Dose: 1,000 ml Lidocaine HCl (Xylocaine 2% Jelly) 10 ml MUCMEM ONETIME ONE Stop: 12/31/17 00:00 Last Admin: 12/31/17 00:35 Dose: 10 ml Lidocaine/Epinephrine (Xylocaine 1% With Epinephrine 1:100,000) Confirm Administered Dose 50 ml .ROUTE .STK-MED ONE Stop: 12/29/17 07:01 Last Admin: 12/29/17 08:51 Dose: 10 ml Metoclopramide HCl (Reglan) 10 mg IVPUSH ONETIME ONE Stop: 12/28/17 15:19 Last Admin: 12/28/17 15:38 Dose: 10 mg Neostigmine Methylsulfate (Neostigmine) Confirm Administered Dose 5 mg .ROUTE .STK-MED ONE Stop: 12/29/17 08:06 Ondansetron HCl (Zofran) Confirm Administered Dose 4 mg .ROUTE .STK-MED ONE Stop: 12/29/17 08:06 Pantoprazole Sodium (Protonix Iv) 40 mg IV ONETIME ONE Stop: 12/28/17 19:02 Last Admin: 12/28/17 19:45 Dose: 40 mg Propofol (Diprivan 20 Ml) Confirm Administered Dose 200 mg .ROUTE .STK-MED ONE Stop: 12/29/17 08:06 Rocuronium [place] (Zemuron) Confirm Administered Dose 50 mg .ROUTE .STK-MED ONE Stop: 12/29/17 08:06 Sodium Chloride (Saline Flush) 10 ml FLUSH ONETIME ONE Stop: 12/28/17 17:02 Last Admin: 12/28/17 17:30 Dose: 10 ml - Exam Wound/Incisions: Healing Well, Drainage (JOHNY. ) General: No Acute Distress, Lethargic Lungs: Clear to Auscultation, Normal Respiratory Effort Cardiovascular: Regular Rate, Regular Rhythm GI/Abdominal Exam: Normal Bowel Sounds Extremities: Normal Inspection Skin: Warm, Dry, Intact (JOHNY has some drainage around it. ) Neurological: No New Focal Deficit Psy/Mental Status: Other (Lethargic.) - Problem List & Annotations (1) Acute cholecystitis SNOMED Code(s): 44352182 Code(s): K81.0 - ACUTE CHOLECYSTITIS Status: Acute Current Visit: Yes - Problem List Review Problem List Initiated/Reviewed/Updated: Yes - My Orders Last 24 Hours: Active Orders 24 hr Category Date Time Status Insert Anderson Catheter [Insert Urinary Catheter] [OM.PC] Care 12/31/17 00:00 Ordered Q24H CBC W/O DIFF,HEMOGRAM [HEME] DAILY Lab 01/01/18 05:11 Ordered CBC W/O DIFF,HEMOGRAM [HEME] DAILY Lab 01/02/18 05:11 Ordered CBC W/O DIFF,HEMOGRAM [HEME] DAILY Lab 01/03/18 05:11 Ordered CBC W/O DIFF,HEMOGRAM [HEME] DAILY Lab 01/04/18 05:11 Ordered COMPREHENSIVE METABOLIC PN,CMP [CHEM] DAILY Lab 01/01/18 05:11 Ordered COMPREHENSIVE METABOLIC PN,CMP [CHEM] DAILY Lab 01/02/18 05:11 Ordered COMPREHENSIVE METABOLIC PN,CMP [CHEM] DAILY Lab 01/03/18 05:11 Ordered COMPREHENSIVE METABOLIC PN,CMP [CHEM] DAILY Lab 01/04/18 05:11 Ordered GLUCOSE POC LAB TO COLLECT [POC] QIDACANDBED Lab 12/31/17 07:30 Ordered GLUCOSE POC LAB TO COLLECT [POC] QIDACANDBED Lab 12/31/17 11:30 Ordered GLUCOSE POC LAB TO COLLECT [POC] QIDACANDBED Lab 12/31/17 16:30 Ordered GLUCOSE POC LAB TO COLLECT [POC] QIDACANDBED Lab 12/31/17 21:00 Ordered GLUCOSE POC LAB TO COLLECT [POC] QIDACANDBED Lab 01/01/18 07:30 Ordered GLUCOSE POC LAB TO COLLECT [POC] QIDACANDBED Lab 01/01/18 11:30 Ordered GLUCOSE POC LAB TO COLLECT [POC] QIDACANDBED Lab 01/01/18 16:30 Ordered GLUCOSE POC LAB TO COLLECT [POC] QIDACANDBED Lab 01/01/18 21:00 Ordered Acetaminophen [Tylenol] Med 12/30/17 16:00 Active 650 mg PO Q4H PRN Enoxaparin [Lovenox] Med 12/30/17 13:00 Active 40 mg SUBCUT Q24H Oral Care [OM.PC] BID Oth 12/30/17 17:30 Ordered Oral Care [OM.PC] BID Oth 12/31/17 17:30 Ordered Oral Care [OM.PC] BID Oth 01/01/18 17:30 Ordered Oral Care [OM.PC] BID Oth 01/02/18 17:30 Ordered Oral Care [OM.PC] BID Oth 01/03/18 17:30 Ordered Oral Care [OM.PC] BID Oth 01/04/18 17:30 Ordered Oral Care [OM.PC] BID Oth 01/05/18 17:30 Ordered Oral Care [OM.PC] BID Oth 01/06/18 17:30 Ordered Oral Care [OM.PC] BID Oth 01/07/18 17:30 Ordered Medication Orders Acetaminophen (Tylenol) 650 mg PO Q4H PRN PRN Reason: PAIN Last Admin: 12/30/17 18:25 Dose: 650 mg Albuterol (Proventil Neb Soln) 2.5 mg NEB Q4H PRN PRN Reason: Shortness Of Breath/wheezing Artificial Tears (Natural Balance Tears) 0 ml EYEBOTH QID PRN PRN Reason: Dry Eyes Enoxaparin Sodium (Lovenox) 40 mg SUBCUT Q24H [facility] [place] Last Admin: 12/30/17 13:40 Dose: 40 mg Hydromorphone HCl (Dilaudid) 0.5 mg IVPUSH Q2H PRN PRN Reason: Pain Last Admin: 12/31/17 06:31 Dose: 0.5 mg Admin: 12/31/17 02:38 Dose: 0.5 mg Admin: 12/30/17 21:13 Dose: 0.5 mg Admin: 12/30/17 06:37 Dose: 0.5 mg Admin: 12/29/17 14:15 Dose: 0.5 mg Piperacillin/Tazobactam/ (Dextrose 3.375 gm/ Premix) 50 mls @ 100 mls/hr IV Q6H [facility] [place] Last Admin: 12/31/17 05:39 Dose: 100 mls/hr Admin: 12/31/17 00:23 Dose: 100 mls/hr Admin: 12/30/17 17:27 Dose: 100 mls/hr Admin: 12/30/17 11:43 Dose: 100 mls/hr Admin: 12/30/17 05:35 Dose: 100 mls/hr Admin: 12/29/17 23:25 Dose: 100 mls/hr Admin: 12/29/17 17:08 Dose: 100 mls/hr Admin: 12/29/17 11:14 Dose: 100 mls/hr Potassium Chloride/Dextrose/Sod Cl (D5 1/2 Ns W/ 20 Meq/L Kcl) 1,000 mls @ 125 mls/hr IV ASDIRECTED [facility] [place] Last Admin: 12/30/17 23:30 Dose: 125 mls/hr Infusion: 04/16/18 22:57 Dose: 125 mls/hr Admin: 12/30/17 14:57 Dose: 125 mls/hr Infusion: 12/30/17 12:27 Dose: 125 mls/hr Admin: 12/30/17 04:27 Dose: 125 mls/hr Infusion: 12/30/17 04:23 Dose: 125 mls/hr Admin: 12/29/17 20:23 Dose: 125 mls/hr Infusion: 12/29/17 19:04 Dose: 125 mls/hr Admin: 12/29/17 11:04 Dose: 125 mls/hr Insulin Aspart (Novolog) 0 unit SUBCUT QIDACANDBED [facility] [place]; Protocol Last Admin: 12/30/17 20:51 Dose: 2 unit Admin: 12/30/17 17:29 Dose: 1 unit Admin: 12/30/17 11:44 Dose: 2 unit Admin: 12/30/17 08:02 Dose: 2 unit Admin: 12/29/17 21:09 Dose: 2 unit Admin: 12/29/17 17:04 Dose: 2 unit Admin: 12/29/17 11:35 Dose: 2 unit Admin: 12/29/17 11:34 Dose: Not Given Admin: 12/28/17 20:52 Dose: 1 unit Lorazepam (Ativan) 0.5 - 1 mg IVPUSH Q4H PRN PRN Reason: Nausea/Vomiting Melatonin (Melatonin) 9 mg PO BEDTIME [facility] [place] Last Admin: 12/30/17 21:12 Dose: Not Given Admin: 12/28/17 21:12 Dose: 9 mg Mirtazapine (Remeron) 15 mg PO BEDTIME [facility] [place] Last Admin: 12/30/17 21:13 Dose: Not Given Admin: 12/29/17 21:46 Dose: Admin: 12/28/17 21:12 Dose: 15 mg Ondansetron HCl (Zofran Odt) 4 mg PO Q6H PRN PRN Reason: Nausea able to take PO Ondansetron HCl (Zofran) 4 mg IV Q6H PRN PRN Reason: Nausea/Vomiting Last Admin: 12/30/17 20:58 Dose: 4 mg Oxycodone HCl (Oxycodone) 5 mg PO Q4H PRN PRN Reason: Pain Last Admin: 12/30/17 13:47 Dose: 5 mg Admin: 12/28/17 19:54 Dose: 5 mg - Assessment Assessment (Free Text/Narrative):: His WBC is up, but he remains afebrile. His Hgb is down to 9.4 on Lovenox. He could not void so his Anderson was put back in. He has excellent bowel sounds but is not eating well yet. - Plan Plan (Free Text/Narrative):: Follow.
[2017-12-31] MEDS: Insulin Aspart 100 Units/ML 3 ML Pen SUBCUT SCH ×4 (08:21→21:28)
[2017-12-31] MEDS: D5 1/2 NS w/ 20 mEq/L KCl 1,000 ML IV SCH (08:32)
[2017-12-31] MEDS ORDERED: Potassium Chloride 20 MEQ Tab.ER PO ONE (10:00)
[2017-12-31] MEDS: Acetaminophen Soln 650 MG/20.3 ML UD Cup PO PRN ×3 (10:05→22:32)
[2017-12-31] MEDS: Ondansetron 4 MG/2 ML SDV IV PRN (12:16)
--- NOTE | 2017-12-31 12:30 | CR ---
Chest 1V Frontal HISTORY: Chest pain. FINDINGS: Cardiac size and pulmonary vessels are normal. The lungs are clear. IMPRESSION: Negative AP chest.
[2017-12-31] MEDS: Enoxaparin 40 MG/0.4 ML Syringe SUBCUT SCH (12:36)
[2017-12-31] MEDS: oxyCODONE 5 MG Tab PO PRN ×2 (15:16→22:32)
[2017-12-31] MEDS: LORazepam 2 MG/ML SDV IVPUSH PRN (15:25)
--- NOTE | 2017-12-31 15:51 | PCM.PN ---
- General Info Date of Service: 12/31/17 Subjective Update: This patient has remained stable overnight, Anderson catheter had to be replaced because of poor urine output and urinary retention. Oral intake has remained very poor, even to the point that the patient refuses to take oral medication. Vital signs have been stable and he has remained afebrile. Functional Status: Denies: Tolerating Diet, Urinating - Review of Systems General: Reports: Weakness. Denies: Fever, Chills Pulmonary: Reports: No Symptoms Cardiovascular: Reports: No Symptoms Gastrointestinal: Reports: Abdominal Pain. Denies: Diarrhea, Nausea, Vomiting - Patient Data Vitals - Most Recent: Last Vital Signs Temp 98.7 F 12/31/17 14:30 Pulse 80 12/31/17 14:30 Resp 18 12/31/17 14:30 BP 129/68 12/31/17 14:30 Pulse Ox 92 L 12/31/17 14:30 Weight - Most Recent: 161 lb 6.054 oz I&O - Last 24 Hours: Intake & Output 12/31/17 12/31/17 12/31/17 06:59 14:59 22:59 Intake Total 1492 50 Output Total 495 Balance 997 50 Lab Results Last 24 Hours: Laboratory Results - last 24 hr 12/31/17 12/31/17 Range/Units 04:55 04:55 WBC 15.3 H (4.5-11.0) K/uL RBC 3.22 L (4.30-5.90) M/uL Hgb 9.4 L (12.0-15.0) g/dL Hct 29.9 L (40.0-54.0) % MCV 93 (80-98) fL MCH 29 (27-31) pg MCHC 31 L (32-36) % Plt Count 248 (150-400) K/uL Sodium 143 (140-148) mmol/L Potassium 3.5 L (3.6-5.2) mmol/L Chloride 108 (100-108) mmol/L Carbon Dioxide 27 (21-32) mmol/L Anion Gap 11.5 (5.0-14.0) mmol/L BUN 27 H (7-18) mg/dL Creatinine 1.0 (0.8-1.3) mg/dL Est Cr Clr Drug Dosing 69.48 mL/min Estimated GFR (MDRD) > 60 (>60) Glucose 219 H (74-106) mg/dL Calcium 7.9 L (8.5-10.1) mg/dL Total Bilirubin 0.4 (0.2-1.0) mg/dL AST 102 H D (15-37) U/L ALT 71 D (12-78) U/L Alkaline Phosphatase 72 (46-116) U/L Total Protein 5.6 L (6.4-8.2) g/dL Albumin 1.9 L (3.4-5.0) g/dL Globulin 3.7 H (2.3-3.5) g/dL Albumin/Globulin Ratio 0.5 L (1.2-2.2) Aaron Results Last 24 Hours: Microbiology 12/29/17 11:31 Gram Stain - Final Gallbladder Fluid - Bile Wound Culture - Preliminary NO GROWTH AFTER 2 DAYS Anaerobic Culture - Preliminary NO GROWTH AFTER 2 DAYS 12/29/17 08:40 Gram Stain - Final Peritoneal Fluid Wound Culture - Preliminary NO GROWTH AFTER 2 DAYS Anaerobic Culture - Preliminary NO GROWTH AFTER 2 DAYS 12/28/17 16:33 Aerobic Blood Culture - Preliminary Blood - Arm, Right NO GROWTH AFTER 2 DAYS Anaerobic Blood Culture - Preliminary NO GROWTH AFTER 2 DAYS Med Orders - Current: Current Medications Acetaminophen (Tylenol) 650 mg PO Q4H PRN PRN Reason: PAIN Last Admin: 12/30/17 18:25 Dose: 650 mg Albuterol (Proventil Neb Soln) 2.5 mg NEB Q4H PRN PRN Reason: Shortness Of Breath/wheezing Artificial Tears (Natural Balance Tears) 0 ml EYEBOTH QID PRN PRN Reason: Dry Eyes Enoxaparin Sodium (Lovenox) 40 mg SUBCUT Q24H [facility] Last Admin: 12/31/17 12:36 Dose: 40 mg Piperacillin/Tazobactam/ (Dextrose 3.375 gm/ Premix) 50 mls @ 100 mls/hr IV Q6H [facility] Last Admin: 12/31/17 12:16 Dose: 100 mls/hr Potassium Chloride 40 meq/ (Premix) 100 mls @ 25 mls/hr IV ONETIME ONE Stop: 12/31/17 19:44 Sodium Chloride (Normal Saline) 1,000 mls @ 50 mls/hr IV ASDIRECTED [facility] Insulin Aspart (Novolog) 0 unit SUBCUT QIDACANDBED [facility]; Protocol Last Admin: 12/31/17 12:34 Dose: 1 unit Lorazepam (Ativan) 0.5 - 1 mg IVPUSH Q4H PRN PRN Reason: Nausea/Vomiting Last Admin: 12/31/17 15:25 Dose: 0.5 mg Melatonin (Melatonin) 9 mg PO BEDTIME [facility] Last Admin: 12/30/17 21:12 Dose: Not Given Mirtazapine (Remeron) 15 mg PO BEDTIME [facility] Last Admin: 12/30/17 21:13 Dose: Not Given Ondansetron HCl (Zofran Odt) 4 mg PO Q6H PRN PRN Reason: Nausea able to take PO Ondansetron HCl (Zofran) 4 mg IV Q6H PRN PRN Reason: Nausea/Vomiting Last Admin: 12/31/17 12:16 Dose: 4 mg Oxycodone HCl (Oxycodone) 5 mg PO Q4H PRN PRN Reason: Pain Last Admin: 12/31/17 15:16 Dose: 5 mg Discontinued Medications Acetaminophen (Tylenol) 650 mg PO Q4H PRN PRN Reason: Pain (Mild 1-3)/fever Last Admin: 12/30/17 12:04 Dose: 650 mg Bupivacaine HCl (Marcaine 0.5%) Confirm Administered Dose 50 ml .ROUTE .STK-MED ONE Stop: 12/29/17 07:01 Last Admin: 12/29/17 08:51 Dose: 10 ml Cefoxitin Sodium (Mefoxin) Confirm Administered Dose 2 gm .ROUTE .STK-MED ONE Stop: 12/29/17 08:32 Ephedrine Sulfate (Ephedrine Sulfate) Confirm Administered Dose 50 mg .ROUTE .STK-MED ONE Stop: 12/29/17 08:49 Fentanyl (Sublimaze) Confirm Administered Dose 250 mcg .ROUTE .STK-MED ONE Stop: 12/29/17 08:06 Glycopyrrolate (Robinul) Confirm Administered Dose 1 mg .ROUTE .STK-MED ONE Stop: 12/29/17 08:06 Hydromorphone HCl (Dilaudid) 0.5 mg IVPUSH Q2H PRN PRN Reason: Pain Last Admin: 12/31/17 06:31 Dose: 0.5 mg Lactated Ringer's (Ringers, Lactated) 1,000 mls @ 1,000 mls/hr IV BOLUS ONE Stop: 12/28/17 16:17 Last Admin: 12/28/17 15:37 Dose: 1,000 mls/hr Lactated Ringer's (Ringers, Lactated) 1,000 mls @ 999 mls/hr IV BOLUS ONE Stop: 12/28/17 17:52 Last Admin: 12/28/17 16:56 Dose: 999 mls/hr Sodium Chloride (Normal Saline) 80 mls @ 3.5 mls/sec IV ONETIME ONE Stop: 12/28/17 17:02 Last Admin: 12/28/17 17:30 Dose: 2.5 mls/sec Piperacillin Sod/Tazobactam (Sod 3.375 gm/ Sodium Chloride) 50 mls @ 100 mls/ hr IV Q6H [facility] Last Admin: 12/29/17 06:33 Dose: 100 mls/hr Sodium Chloride (Normal Saline) 1,000 mls @ 125 mls/hr IV ASDIRECTED [facility] Last Admin: 12/29/17 03:59 Dose: 125 mls/hr Sodium Chloride (Normal Saline) Confirm Administered Dose 10 mls @ as directed .ROUTE .STK-MED ONE Stop: 12/29/17 08:32 Sodium Chloride (Normal Saline) Confirm Administered Dose 500 mls @ as directed .ROUTE .STK-MED ONE Stop: 12/29/17 08:37 Sodium Chloride (Normal Saline) Confirm Administered Dose 500 mls @ as directed .ROUTE .STK-MED ONE Stop: 12/29/17 08:37 Potassium Chloride/Dextrose/Sod Cl (D5 1/2 Ns W/ 20 Meq/L Kcl) 1,000 mls @ 125 mls/hr IV ASDIRECTED [facility] Last Admin: 12/31/17 08:32 Dose: 125 mls/hr Iopamidol (Isovue-300 (61%)) 100 ml IV . DIRECTED [facility] Last Admin: 12/28/17 17:30 Dose: 100 ml Lactated Ringer's (Ringers, Lactated) 1,000 ml IRR .STK-MED ONE Stop: 12/29/17 09:01 Last Admin: 12/29/17 09:00 Dose: 1,000 ml Lidocaine HCl (Xylocaine 2% Jelly) 10 ml MUCMEM ONETIME ONE Stop: 12/31/17 00:00 Last Admin: 12/31/17 00:35 Dose: 10 ml Lidocaine/Epinephrine (Xylocaine 1% With Epinephrine 1:100,000) Confirm Administered Dose 50 ml .ROUTE .STK-MED ONE Stop: 12/29/17 07:01 Last Admin: 12/29/17 08:51 Dose: 10 ml Metoclopramide HCl (Reglan) 10 mg IVPUSH ONETIME ONE Stop: 12/28/17 15:19 Last Admin: 12/28/17 15:38 Dose: 10 mg Neostigmine Methylsulfate (Neostigmine) Confirm Administered Dose 5 mg .ROUTE .STK-MED ONE Stop: 12/29/17 08:06 Ondansetron HCl (Zofran) Confirm Administered Dose 4 mg .ROUTE .STK-MED ONE Stop: 12/29/17 08:06 Pantoprazole Sodium (Protonix Iv) 40 mg IV ONETIME ONE Stop: 12/28/17 19:02 Last Admin: 12/28/17 19:45 Dose: 40 mg Potassium Chloride (Klor-Con M20) 40 meq PO ONETIME ONE Stop: 12/31/17 10:01 Last Admin: 12/31/17 12:11 Dose: Not Given Propofol (Diprivan 20 Ml) Confirm Administered Dose 200 mg .ROUTE .STK-MED ONE Stop: 12/29/17 08:06 Rocuronium [place] (Zemuron) Confirm Administered Dose 50 mg .ROUTE .STK-MED ONE Stop: 12/29/17 08:06 Sodium Chloride (Saline Flush) 10 ml FLUSH ONETIME ONE Stop: 12/28/17 17:02 Last Admin: 12/28/17 17:30 Dose: 10 ml - Exam Quality Assessment: Urine Catheter, DVT Prophylaxis General: Alert, Cooperative, Mild Distress Lungs: Clear to Auscultation, Normal Respiratory Effort Cardiovascular: Regular Rate, Regular Rhythm GI/Abdominal Exam: Soft, No Organomegaly, Tender. No: Distended, Guarding, Rigid, Rebound Extremities: Non-Tender, No Pedal Edema Skin: Warm, Dry, Intact - Problem List Review Problem List Initiated/Reviewed/Updated: Yes - My Orders Last 24 Hours: My Active Orders 12/31/17 07:28 PT Evaluation and Treatment [CONS] Routine 12/31/17 15:45 Potassium Chloride [KCL 40 MEQ in Water 100 ML] 40 meq Premix Bag 1 bag IV ONETIME 12/31/17 16:00 Sodium Chloride 0.9% @ 50 MLS/HR(1000ml) Sodium Chloride 0.9% [Normal Saline] 1 ,000 ml IV ASDIRECTED - Plan Plan:: ASSESSMENT AND PLAN - Acute cholecystitis with sepsis - sepsis has resolved, not eating well, refusing even oral medications. -Continue IV fluids, saline lock when taking oral fluids -Pain control -Antibiotic coverage with Pip/Tazo -Postoperative care per Dr. Muhammad Stage III chronic kidney disease - renal function has remained stable thus far -Repeat labs in the morning Alzheimer's dementia without behavioral disturbance - with acute infection and hospitalization he is at high risk for delirium and or confusion. -Melatonin at bedtime Diabetes mellitus type 2 - resume metformin in the next day or 2 when stable -Low-dose sliding scale insulin with Accu-Cheks Maintenance issues - - DVT prophylaxis - mechanical - GI prophylaxis - not indicated - Nutrition - advance diet as tolerated - Anderson catheter - placed in the emergency room for strict intake and output monitoring during acute illness, hopefully this can be removed tomorrow CODE STATUS - DNR/DNI Admission justification - This patient will be admitted for inpatient services and is medically appropriate meeting medical necessity for inpatient admission as outlined in my documentation. I reasonably expect the patient will require inpatient services that span a period time over 2 midnights. I reasonably expect this patient to be discharged or transferred within 96 hours [facility]. Disposition - anticipate discharge back to the group home after the hospital stay Primary care physician - Dr Beck
[2017-12-31] MEDS ORDERED: Sodium Chloride 0.9% 1,000 ML IV SCH (16:00)
[2017-12-31] MEDS: Potassium Chloride 20 MEQ, Lidocaine 1% 2 ML in Sodium Chloride 0.9% 100 ML IV SCH ×2 (16:38→21:23)
[2017-12-31] MEDS: Melatonin 3 MG Tab PO SCH (20:46)
[2017-12-31] MEDS: Mirtazapine 15 MG Tab PO SCH (20:46)
[2018-01-01] MEDS: Piperacillin/Tazobactam/Dext 3.375 GM in Premix Bag 1 BAG IV SCH ×3 (00:56→12:30)
[2018-01-01] MEDS: LORazepam 2 MG/ML SDV IVPUSH PRN ×2 (02:08→09:58)
[2018-01-01] MEDS: Insulin Aspart 100 Units/ML 3 ML Pen SUBCUT SCH ×2 (07:40→11:28)
[2018-01-01] MEDS: oxyCODONE 5 MG Tab PO PRN (10:00)
--- NOTE | 2018-01-01 11:36 | PCM.SURGPN ---
- General Info Date of Service: 01/01/18 Date of Surgery/Procedure: 12/29/17 POD#: 3 Post-Op Diagnosis: Acute gangrenous cholecystitis with cholelithiasis Functional Status: Reports: Pain Controlled, Tolerating Diet, Ambulating, Urinating (Anderson removed to give him a chance to void again. ) - Review of Systems General: Reports: No Symptoms HEENT: Reports: No Symptoms Pulmonary: Reports: No Symptoms Cardiovascular: Reports: No Symptoms Gastrointestinal: Reports: No Symptoms Genitourinary: Reports: No Symptoms Musculoskeletal: Reports: No Symptoms Skin: Reports: No Symptoms Neurological: Reports: No Symptoms Psychiatric: Reports: No Symptoms - Patient Data Vitals - Most Recent: Last Vital Signs Temp 97.7 F 01/01/18 08:00 Pulse 83 01/01/18 08:00 Resp 18 01/01/18 08:00 BP 131/71 01/01/18 08:00 Pulse Ox 97 01/01/18 08:00 Weight - Most Recent: 161 lb 6.054 oz I&O - Last 24 Hours: Intake & Output 12/31/17 01/01/18 01/01/18 22:59 06:59 14:59 Intake Total 150 709 Output Total 340 385 280 Balance -190 324 -280 Lab Results Last 24 Hrs: Laboratory Results - last 24 hr 01/01/18 01/01/18 Range/Units 05:11 05:11 WBC 10.9 (4.5-11.0) K/uL RBC 3.12 L (4.30-5.90) M/uL Hgb 9.0 L (12.0-15.0) g/dL Hct 28.8 L (40.0-54.0) % MCV 92 (80-98) fL MCH 29 (27-31) pg MCHC 31 L (32-36) % Plt Count 251 (150-400) K/uL Sodium 147 (140-148) mmol/L Potassium 3.4 L (3.6-5.2) mmol/L Chloride 111 H (100-108) mmol/L Carbon Dioxide 27 (21-32) mmol/L Anion Gap 12.4 (5.0-14.0) mmol/L BUN 22 H (7-18) mg/dL Creatinine 0.8 (0.8-1.3) mg/dL Est Cr Clr Drug Dosing 86.86 mL/min Estimated GFR (MDRD) > 60 (>60) Glucose 122 H (74-106) mg/dL Calcium 7.9 L (8.5-10.1) mg/dL Total Bilirubin 0.4 (0.2-1.0) mg/dL AST 87 H (15-37) U/L ALT 81 H (12-78) U/L Alkaline Phosphatase 69 (46-116) U/L Total Protein 5.4 L (6.4-8.2) g/dL Albumin 1.8 L (3.4-5.0) g/dL Globulin 3.6 H (2.3-3.5) g/dL Albumin/Globulin Ratio 0.5 L (1.2-2.2) Aaron Results Last 24 Hrs: Microbiology 12/29/17 11:31 Gram Stain - Final Gallbladder Fluid - Bile Wound Culture - Final NO GROWTH AFTER 3 DAYS Anaerobic Culture - Final NO GROWTH AFTER 3 DAYS 12/29/17 08:40 Gram Stain - Final Peritoneal Fluid Wound Culture - Final NO GROWTH AFTER 3 DAYS Anaerobic Culture - Final NO GROWTH AFTER 3 DAYS 12/28/17 16:33 Aerobic Blood Culture - Preliminary Blood - Arm, Right NO GROWTH AFTER 3 DAYS Anaerobic Blood Culture - Preliminary NO GROWTH AFTER 3 DAYS Med Orders - Current: Current Medications Acetaminophen (Tylenol) 650 mg PO Q4H PRN PRN Reason: PAIN Last Admin: 12/31/17 22:32 Dose: 650 mg Albuterol (Proventil Neb Soln) 2.5 mg NEB Q4H PRN PRN Reason: Shortness Of Breath/wheezing Artificial Tears (Natural Balance Tears) 0 ml EYEBOTH QID PRN PRN Reason: Dry Eyes Enoxaparin Sodium (Lovenox) 40 mg SUBCUT Q24H [facility] Last Admin: 12/31/17 12:36 Dose: 40 mg Piperacillin/Tazobactam/ (Dextrose 3.375 gm/ Premix) 50 mls @ 100 mls/hr IV Q6H [facility] Last Admin: 01/01/18 05:46 Dose: 100 mls/hr Sodium Chloride (Normal Saline) 1,000 mls @ 50 mls/hr IV ASDIRECTED [facility] Last Admin: 12/31/17 16:21 Dose: 50 mls/hr Insulin Aspart (Novolog) 0 unit SUBCUT QIDACANDBED [facility]; Protocol Last Admin: 01/01/18 07:40 Dose: Not Given Lorazepam (Ativan) 0.5 - 1 mg IVPUSH Q4H PRN PRN Reason: Nausea/Vomiting Last Admin: 01/01/18 09:58 Dose: 1 mg Melatonin (Melatonin) 9 mg PO BEDTIME [facility] Last Admin: 12/31/17 20:46 Dose: Not Given Mirtazapine (Remeron) 15 mg PO BEDTIME [facility] Last Admin: 12/31/17 20:46 Dose: Not Given Ondansetron HCl (Zofran Odt) 4 mg PO Q6H PRN PRN Reason: Nausea able to take PO Ondansetron HCl (Zofran) 4 mg IV Q6H PRN PRN Reason: Nausea/Vomiting Last Admin: 12/31/17 12:16 Dose: 4 mg Oxycodone HCl (Oxycodone) 5 mg PO Q4H PRN PRN Reason: Pain Last Admin: 01/01/18 10:00 Dose: 5 mg Potassium Chloride (Klor-Con M20) 40 meq PO ONETIME ONE Stop: 01/01/18 11:14 Discontinued Medications Acetaminophen (Tylenol) 650 mg PO Q4H PRN PRN Reason: Pain (Mild 1-3)/fever Last Admin: 12/30/17 12:04 Dose: 650 mg Bupivacaine HCl (Marcaine 0.5%) Confirm Administered Dose 50 ml .ROUTE .STK-MED ONE Stop: 12/29/17 07:01 Last Admin: 12/29/17 08:51 Dose: 10 ml Cefoxitin Sodium (Mefoxin) Confirm Administered Dose 2 gm .ROUTE .STK-MED ONE Stop: 12/29/17 08:32 Ephedrine Sulfate (Ephedrine Sulfate) Confirm Administered Dose 50 mg .ROUTE .STK-MED ONE Stop: 12/29/17 08:49 Fentanyl (Sublimaze) Confirm Administered Dose 250 mcg .ROUTE .STK-MED ONE Stop: 12/29/17 08:06 Glycopyrrolate (Robinul) Confirm Administered Dose 1 mg .ROUTE .STK-MED ONE Stop: 12/29/17 08:06 Hydromorphone HCl (Dilaudid) 0.5 mg IVPUSH Q2H PRN PRN Reason: Pain Last Admin: 12/31/17 06:31 Dose: 0.5 mg Lactated Ringer's (Ringers, Lactated) 1,000 mls @ 1,000 mls/hr IV BOLUS ONE Stop: 12/28/17 16:17 Last Admin: 12/28/17 15:37 Dose: 1,000 mls/hr Lactated Ringer's (Ringers, Lactated) 1,000 mls @ 999 mls/hr IV BOLUS ONE Stop: 12/28/17 17:52 Last Admin: 12/28/17 16:56 Dose: 999 mls/hr Sodium Chloride (Normal Saline) 80 mls @ 3.5 mls/sec IV ONETIME ONE Stop: 12/28/17 17:02 Last Admin: 12/28/17 17:30 Dose: 2.5 mls/sec Piperacillin Sod/Tazobactam (Sod 3.375 gm/ Sodium Chloride) 50 mls @ 100 mls/ hr IV Q6H [facility] Last Admin: 12/29/17 06:33 Dose: 100 mls/hr Sodium Chloride (Normal Saline) 1,000 mls @ 125 mls/hr IV ASDIRECTED [facility] Last Admin: 12/29/17 03:59 Dose: 125 mls/hr Sodium Chloride (Normal Saline) Confirm Administered Dose 10 mls @ as directed .ROUTE .[facility] ONE Stop: 12/29/17 08:32 Sodium Chloride (Normal Saline) Confirm Administered Dose 500 mls @ as directed .ROUTE .[facility] ONE Stop: 12/29/17 08:37 Sodium Chloride (Normal Saline) Confirm Administered Dose 500 mls @ as directed .ROUTE .[facility] ONE Stop: 12/29/17 08:37 Potassium Chloride/Dextrose/Sod Cl (D5 1/2 Ns W/ 20 Meq/L Kcl) 1,000 mls @ 125 mls/hr IV ASDIRECTED [facility] Last Admin: 12/31/17 08:32 Dose: 125 mls/hr Potassium Chloride 20 meq/Lidocaine HCl 2 ml/ Sodium Chloride 112 mls @ 56 mls/ hr IV Q2H [facility] Stop: 12/31/17 19:59 Last Admin: 12/31/17 21:23 Dose: 56 mls/hr Iopamidol (Isovue-300 (61%)) 100 ml IV . DIRECTED [facility] Last Admin: 12/28/17 17:30 Dose: 100 ml Lactated Ringer's (Ringers, Lactated) 1,000 ml IRR .STK-MED ONE Stop: 12/29/17 09:01 Last Admin: 12/29/17 09:00 Dose: 1,000 ml Lidocaine HCl (Xylocaine 2% Jelly) 10 ml MUCMEM ONETIME ONE Stop: 12/31/17 00:00 Last Admin: 12/31/17 00:35 Dose: 10 ml Lidocaine/Epinephrine (Xylocaine 1% With Epinephrine 1:100,000) Confirm Administered Dose 50 ml .ROUTE .STK-MED ONE Stop: 12/29/17 07:01 Last Admin: 12/29/17 08:51 Dose: 10 ml Metoclopramide HCl (Reglan) 10 mg IVPUSH ONETIME ONE Stop: 12/28/17 15:19 Last Admin: 12/28/17 15:38 Dose: 10 mg Neostigmine Methylsulfate (Neostigmine) Confirm Administered Dose 5 mg .ROUTE .STK-MED ONE Stop: 12/29/17 08:06 Ondansetron HCl (Zofran) Confirm Administered Dose 4 mg .ROUTE .STK-MED ONE Stop: 12/29/17 08:06 Pantoprazole Sodium (Protonix Iv) 40 mg IV ONETIME ONE Stop: 12/28/17 19:02 Last Admin: 12/28/17 19:45 Dose: 40 mg Potassium Chloride (Klor-Con M20) 40 meq PO ONETIME ONE Stop: 12/31/17 10:01 Last Admin: 12/31/17 12:11 Dose: Not Given Propofol (Diprivan 20 Ml) Confirm Administered Dose 200 mg .ROUTE .STK-MED ONE Stop: 12/29/17 08:06 Rocuronium [place] (Zemuron) Confirm Administered Dose 50 mg .ROUTE .STK-MED ONE Stop: 12/29/17 08:06 Sodium Chloride (Saline Flush) 10 ml FLUSH ONETIME ONE Stop: 12/28/17 17:02 Last Admin: 12/28/17 17:30 Dose: 10 ml - Exam Wound/Incisions: Healing Well, No Drainage Quality Assessment: Urine Catheter, DVT Prophylaxis General: Alert, Cooperative, No Acute Distress Lungs: Clear to Auscultation, Normal Respiratory Effort Cardiovascular: Regular Rate, Regular Rhythm GI/Abdominal Exam: Normal Bowel Sounds, Soft, Non-Tender Extremities: Normal Inspection Skin: Warm, Dry, Intact Neurological: No New Focal Deficit Psy/Mental Status: Alert, Normal Affect, Normal Mood - Problem List & Annotations (1) Acute cholecystitis SNOMED Code(s): 92676885 Code(s): K81.0 - ACUTE CHOLECYSTITIS Status: Acute Current Visit: Yes - Problem List Review Problem List Initiated/Reviewed/Updated: Yes - My Orders Last 24 Hours: Active Orders 24 hr Category Date Time Status Communication Order [RC] INTERMITTENT Care 01/01/18 10:06 Active CBC W/O DIFF,HEMOGRAM [HEME] DAILY Lab 01/02/18 05:11 Ordered CBC W/O DIFF,HEMOGRAM [HEME] DAILY Lab 01/03/18 05:11 Ordered CBC W/O DIFF,HEMOGRAM [HEME] DAILY Lab 01/04/18 05:11 Ordered COMPREHENSIVE METABOLIC PN,CMP [CHEM] DAILY Lab 01/02/18 05:11 Ordered COMPREHENSIVE METABOLIC PN,CMP [CHEM] DAILY Lab 01/03/18 05:11 Ordered COMPREHENSIVE METABOLIC PN,CMP [CHEM] DAILY Lab 01/04/18 05:11 Ordered GLUCOSE POC LAB TO COLLECT [POC] QIDACANDBED Lab 01/01/18 11:30 Ordered GLUCOSE POC LAB TO COLLECT [POC] QIDACANDBED Lab 01/01/18 16:30 Ordered GLUCOSE POC LAB TO COLLECT [POC] QIDACANDBED Lab 01/01/18 21:00 Ordered Potassium Chloride [Klor-Con M20] Med 01/01/18 11:13 Once 40 meq PO ONETIME ONE Sodium Chloride 0.9% [Normal Saline] 1,000 ml Med 12/31/17 16:00 Active IV ASDIRECTED Drain Removal [OM.PC] Routine Oth 01/01/18 11:10 Ordered Oral Care [OM.PC] BID Oth 12/31/17 17:30 Ordered Oral Care [OM.PC] BID Oth 01/01/18 17:30 Ordered Oral Care [OM.PC] BID Oth 01/02/18 17:30 Ordered Oral Care [OM.PC] BID Oth 01/03/18 17:30 Ordered Oral Care [OM.PC] BID Oth 01/04/18 17:30 Ordered Oral Care [OM.PC] BID Oth 01/05/18 17:30 Ordered Oral Care [OM.PC] BID Oth 01/06/18 17:30 Ordered Oral Care [OM.PC] BID Oth 01/07/18 17:30 Ordered Medication Orders Acetaminophen (Tylenol) 650 mg PO Q4H PRN PRN Reason: PAIN Last Admin: 12/31/17 22:32 Dose: 650 mg Admin: 12/30/17 18:25 Dose: 650 mg Albuterol (Proventil Neb Soln) 2.5 mg NEB Q4H PRN PRN Reason: Shortness Of Breath/wheezing Artificial Tears (Natural Balance Tears) 0 ml EYEBOTH QID PRN PRN Reason: Dry Eyes Enoxaparin Sodium (Lovenox) 40 mg SUBCUT Q24H [facility] Last Admin: 12/31/17 12:36 Dose: 40 mg Admin: 12/30/17 13:40 Dose: 40 mg Piperacillin/Tazobactam/ (Dextrose 3.375 gm/ Premix) 50 mls @ 100 mls/hr IV Q6H [facility] Last Admin: 01/01/18 05:46 Dose: 100 mls/hr Admin: 01/01/18 00:56 Dose: 100 mls/hr Admin: 12/31/17 20:25 Dose: 100 mls/hr Admin: 12/31/17 12:16 Dose: 100 mls/hr Admin: 12/31/17 05:39 Dose: 100 mls/hr Admin: 12/31/17 00:23 Dose: 100 mls/hr Admin: 12/30/17 17:27 Dose: 100 mls/hr Admin: 12/30/17 11:43 Dose: 100 mls/hr Admin: 12/30/17 05:35 Dose: 100 mls/hr Admin: 12/29/17 23:25 Dose: 100 mls/hr Admin: 12/29/17 17:08 Dose: 100 mls/hr Admin: 12/29/17 11:14 Dose: 100 mls/hr Sodium Chloride (Normal Saline) 1,000 mls @ 50 mls/hr IV ASDIRECTED [facility] Last Admin: 12/31/17 16:21 Dose: 50 mls/hr Insulin Aspart (Novolog) 0 unit SUBCUT QIDACANDBED [facility]; Protocol Last Admin: 01/01/18 07:40 Dose: Not Given Admin: 12/31/17 21:28 Dose: Not Given Admin: 12/31/17 16:39 Dose: 2 unit Admin: 12/31/17 12:34 Dose: 1 unit Admin: 12/31/17 08:21 Dose: 2 unit Admin: 12/30/17 20:51 Dose: 2 unit Admin: 12/30/17 17:29 Dose: 1 unit Admin: 12/30/17 11:44 Dose: 2 unit Admin: 12/30/17 08:02 Dose: 2 unit Admin: 12/29/17 21:09 Dose: 2 unit Admin: 12/29/17 17:04 Dose: 2 unit Admin: 12/29/17 11:35 Dose: 2 unit Admin: 12/29/17 11:34 Dose: Not Given Admin: 12/28/17 20:52 Dose: 1 unit Lorazepam (Ativan) 0.5 - 1 mg IVPUSH Q4H PRN PRN Reason: Nausea/Vomiting Last Admin: 01/01/18 09:58 Dose: 1 mg Admin: 01/01/18 02:08 Dose: 1 mg Admin: 12/31/17 15:25 Dose: 0.5 mg Melatonin (Melatonin) 9 mg PO BEDTIME [facility] Last Admin: 12/31/17 20:46 Dose: Not Given Admin: 12/30/17 21:12 Dose: Not Given Admin: 12/28/17 21:12 Dose: 9 mg Mirtazapine (Remeron) 15 mg PO BEDTIME [facility] Last Admin: 12/31/17 20:46 Dose: Not Given Admin: 12/30/17 21:13 Dose: Not Given Admin: 12/29/17 21:46 Dose: Admin: 12/28/17 21:12 Dose: 15 mg Ondansetron HCl (Zofran Odt) 4 mg PO Q6H PRN PRN Reason: Nausea able to take PO Ondansetron HCl (Zofran) 4 mg IV Q6H PRN PRN Reason: Nausea/Vomiting Last Admin: 12/31/17 12:16 Dose: 4 mg Admin: 12/30/17 20:58 Dose: 4 mg Oxycodone HCl (Oxycodone) 5 mg PO Q4H PRN PRN Reason: Pain Last Admin: 04/18/18 10:00 Dose: 5 mg Admin: 12/31/17 22:32 Dose: 5 mg Admin: 12/31/17 15:16 Dose: 5 mg Admin: 12/30/17 13:47 Dose: 5 mg Admin: 12/28/17 19:54 Dose: 5 mg Potassium Chloride (Klor-Con M20) 40 meq PO ONETIME ONE Stop: 01/01/18 11:14 - Assessment Assessment (Free Text/Narrative):: He looks a lot better. He is sitting up to be moved to a chair. He is eating, although not much. He is having BM's. He is afebrile. His WBC is unremarkable. His JOHNY output is 30 ml/day. His potassium is 3.4. - Plan Plan (Free Text/Narrative):: D/C Justin and JOHNY. D/C IV. Discharge. Give some potassium.
--- NOTE | 2018-01-01 11:59 | PCM.DCSUM1 ---
Discharge Summary - Hospital Course Free Text/Narrative:: This 67 year old white male was admitted four days ago with sepsis. He was found to have acute cholelcystitis. He was treated with Zosyn and fluids, and after resuscitated was taken to the OR the next morning for a laparoscopic cholecystectomy. A gangrenous gall bladder with cholelithiasis was found. He was continued on Zosyn in the post operative period until it was known that his cultures were negative. He currently is eating although poorly. He has had a BM. He is afebrile with a normal WBC. He is discharged back to the half-way at this time in fair condition. - Discharge Data Discharge Date: 01/01/18 Discharge Disposition: Home, Self-Care 01 Condition: Good - Patient Summary/Data Operative Procedure(s) Performed: Laparoscopic cholecytectomy. Consults: Consultations 12/28/17 19:01 Consult to Physician [CONS] Routine Consulting Provider: Niranjan Muhammad Call Completed to Consulting Physician: Yes Reason for Consult: acute cholecystitis Person Notified: BDB Date Notified: 12/28/17 Special Instructions: Mariaelena in the am at 0800 12/28/17 22:57 OT Evaluation and Treatment [CONS] Routine Please Evaluate and Treat. OT Reason for Consult: ADL's Special Instructions: per Kenny assessment This query below is only for informational purposes and is not editable. Admission Diagnosis/Problem: Acute cholecystitis 12/29/17 17:20 Respiratory Care Assess and Treatment [CONS] Routine Comment: Physician Instructions: Post-Op Pneumonia Prevention 12/29/17 17:22 Consult to Respiratory Therapy [Respiratory Care Assess and Treatment] [CONS] Routine Comment: Physician Instructions: Reason for Consult: assist with acupella 12/31/17 07:28 PT Evaluation and Treatment [CONS] Routine Please Evaluate and Treat. PT Reason for Consult: weakness This query below is only for informational purposes and is not editable. Admission Diagnosis/Problem: Acute cholecystitis Hospital Course: See above narrative. - Patient Instructions Diet: Diabetic Diet Activity: As Tolerated Activity, Other: PT as needed. Help with ambulating and activities of daily living. Driving: Do Not Drive Showering/Bathing: Shower in AM Notify Provider of: Fever, Increased Pain, Swelling and Redness, Drainage, Nausea and/or Vomiting - Discharge Plan Home Medications: Home Meds Acetaminophen [Tylenol] 650 mg PO BID 12/28/17 [History] Calcium Carbonate/Vitamin D3 [Calcium 600 + Vit D Tablet] 1 tab PO BID 12/28/17 [History] Cholecalciferol (Vitamin D3) [Vitamin D3] 2,000 unit PO DAILY 12/28/17 [History] Citalopram Hydrobromide [Celexa] 10 mg PO DAILY 12/28/17 [History] Dextran 70/Hypromellose [Artificial Tears] 1 each EYEBOTH QID PRN 12/28/17 [ History] Lisinopril 5 mg PO DAILY 12/28/17 [History] Melatonin 3 mg PO BEDTIME 12/28/17 [History] Mirtazapine [Remeron] 15 mg PO BEDTIME 12/28/17 [History] atorvaSTATin [Lipitor] 10 mg PO BEDTIME 12/28/17 [History] metFORMIN [Glucophage] 500 mg PO BIDAC 12/28/17 [History] Acetaminophen [Tylenol] 650 mg PO Q4H PRN cup 01/01/18 [Rx] Patient Handouts: Laparoscopic Cholecystectomy, Care After, [id number], Preventing Constipation After Surgery Referrals: Niranjan Muhammad MD [Physician] - 01/13/18 12:00 pm (follow up cholecystectomy) Anthony Beck MD [Primary Care Provider] - - Discharge Summary/Plan Comment DC Time >30 min.: Yes Discharge Summary/Plan Comment: See me in [facility] in about two weeks. - Patient Data Vitals - Most Recent: Last Vital Signs Temp 96.6 F 01/01/18 11:00 Pulse 89 01/01/18 11:00 Resp 18 01/01/18 11:00 BP 119/68 01/01/18 11:00 Pulse Ox 95 01/01/18 11:00 Weight - Most Recent: 161 lb 6.054 oz I&O - Last 24 hours: Intake & Output 12/31/17 01/01/18 01/01/18 22:59 06:59 14:59 Intake Total 150 709 Output Total 340 385 280 Balance -190 324 -280 Lab Results - Last 24 hrs: Laboratory Results - last 24 hr 01/01/18 01/01/18 Range/Units 05:11 05:11 WBC 10.9 (4.5-11.0) K/uL RBC 3.12 L (4.30-5.90) M/uL Hgb 9.0 L (12.0-15.0) g/dL Hct 28.8 L (40.0-54.0) % MCV 92 (80-98) fL MCH 29 (27-31) pg MCHC 31 L (32-36) % Plt Count 251 (150-400) K/uL Sodium 147 (140-148) mmol/L Potassium 3.4 L (3.6-5.2) mmol/L Chloride 111 H (100-108) mmol/L Carbon Dioxide 27 (21-32) mmol/L Anion Gap 12.4 (5.0-14.0) mmol/L BUN 22 H (7-18) mg/dL Creatinine 0.8 (0.8-1.3) mg/dL Est Cr Clr Drug Dosing 86.86 mL/min Estimated GFR (MDRD) > 60 (>60) Glucose 122 H (74-106) mg/dL Calcium 7.9 L (8.5-10.1) mg/dL Total Bilirubin 0.4 (0.2-1.0) mg/dL AST 87 H (15-37) U/L ALT 81 H (12-78) U/L Alkaline Phosphatase 69 (46-116) U/L Total Protein 5.4 L (6.4-8.2) g/dL Albumin 1.8 L (3.4-5.0) g/dL Globulin 3.6 H (2.3-3.5) g/dL Albumin/Globulin Ratio 0.5 L (1.2-2.2) KORTNEY Results - Last 24 hrs: Microbiology 12/29/17 11:31 Gram Stain - Final Gallbladder Fluid - Bile Wound Culture - Final NO GROWTH AFTER 3 DAYS Anaerobic Culture - Final NO GROWTH AFTER 3 DAYS 12/29/17 08:40 Gram Stain - Final Peritoneal Fluid Wound Culture - Final NO GROWTH AFTER 3 DAYS Anaerobic Culture - Final NO GROWTH AFTER 3 DAYS 12/28/17 16:33 Aerobic Blood Culture - Preliminary Blood - Arm, Right NO GROWTH AFTER 3 DAYS Anaerobic Blood Culture - Preliminary NO GROWTH AFTER 3 DAYS Med Orders - Current: Current Medications Acetaminophen (Tylenol) 650 mg PO Q4H PRN PRN Reason: PAIN Last Admin: 12/31/17 22:32 Dose: 650 mg Albuterol (Proventil Neb Soln) 2.5 mg NEB Q4H PRN PRN Reason: Shortness Of Breath/wheezing Artificial Tears (Natural Balance Tears) 0 ml EYEBOTH QID PRN PRN Reason: Dry Eyes Enoxaparin Sodium (Lovenox) 40 mg SUBCUT Q24H [facility] Last Admin: 12/31/17 12:36 Dose: 40 mg Piperacillin/Tazobactam/ (Dextrose 3.375 gm/ Premix) 50 mls @ 100 mls/hr IV Q6H [facility] Last Admin: 01/01/18 05:46 Dose: 100 mls/hr Sodium Chloride (Normal Saline) 1,000 mls @ 50 mls/hr IV ASDIRECTED [facility] Last Admin: 12/31/17 16:21 Dose: 50 mls/hr Insulin Aspart (Novolog) 0 unit SUBCUT QIDACANDBED [facility]; Protocol Last Admin: 01/01/18 11:28 Dose: Not Given Lorazepam (Ativan) 0.5 - 1 mg IVPUSH Q4H PRN PRN Reason: Nausea/Vomiting Last Admin: 01/01/18 09:58 Dose: 1 mg Melatonin (Melatonin) 9 mg PO BEDTIME [facility] Last Admin: 12/31/17 20:46 Dose: Not Given Mirtazapine (Remeron) 15 mg PO BEDTIME [facility] Last Admin: 12/31/17 20:46 Dose: Not Given Ondansetron HCl (Zofran Odt) 4 mg PO Q6H PRN PRN Reason: Nausea able to take PO Ondansetron HCl (Zofran) 4 mg IV Q6H PRN PRN Reason: Nausea/Vomiting Last Admin: 12/31/17 12:16 Dose: 4 mg Oxycodone HCl (Oxycodone) 5 mg PO Q4H PRN PRN Reason: Pain Last Admin: 01/01/18 10:00 Dose: 5 mg Potassium Chloride (Klor-Con M20) 40 meq PO ONETIME ONE Stop: 01/01/18 12:01 Discontinued Medications Acetaminophen (Tylenol) 650 mg PO Q4H PRN PRN Reason: Pain (Mild 1-3)/fever Last Admin: 12/30/17 12:04 Dose: 650 mg Bupivacaine HCl (Marcaine 0.5%) Confirm Administered Dose 50 ml .ROUTE .STK-MED ONE Stop: 12/29/17 07:01 Last Admin: 12/29/17 08:51 Dose: 10 ml Cefoxitin Sodium (Mefoxin) Confirm Administered Dose 2 gm .ROUTE .STK-MED ONE Stop: 12/29/17 08:32 Ephedrine Sulfate (Ephedrine Sulfate) Confirm Administered Dose 50 mg .ROUTE .STK-MED ONE Stop: 12/29/17 08:49 Fentanyl (Sublimaze) Confirm Administered Dose 250 mcg .ROUTE .STK-MED ONE Stop: 12/29/17 08:06 Glycopyrrolate (Robinul) Confirm Administered Dose 1 mg .ROUTE .STK-MED ONE Stop: 12/29/17 08:06 Hydromorphone HCl (Dilaudid) 0.5 mg IVPUSH Q2H PRN PRN Reason: Pain Last Admin: 12/31/17 06:31 Dose: 0.5 mg Lactated Ringer's (Ringers, Lactated) 1,000 mls @ 1,000 mls/hr IV [facility] ONE Stop: 12/28/17 16:17 Last Admin: 12/28/17 15:37 Dose: 1,000 mls/hr Lactated Ringer's (Ringers, Lactated) 1,000 mls @ 999 mls/hr IV [facility] ONE Stop: 12/28/17 17:52 Last Admin: 12/28/17 16:56 Dose: 999 mls/hr Sodium Chloride (Normal Saline) 80 mls @ 3.5 mls/sec IV ONETIME ONE Stop: 12/28/17 17:02 Last Admin: 12/28/17 17:30 Dose: 2.5 mls/sec Piperacillin Sod/Tazobactam (Sod 3.375 gm/ Sodium Chloride) 50 mls @ 100 mls/ hr IV Q6H [facility] Last Admin: 12/29/17 06:33 Dose: 100 mls/hr Sodium Chloride (Normal Saline) 1,000 mls @ 125 mls/hr IV ASDIRECTED [facility] Last Admin: 12/29/17 03:59 Dose: 125 mls/hr Sodium Chloride (Normal Saline) Confirm Administered Dose 10 mls @ as directed .ROUTE .STK-MED ONE Stop: 12/29/17 08:32 Sodium Chloride (Normal Saline) Confirm Administered Dose 500 mls @ as directed .ROUTE .[facility] ONE Stop: 12/29/17 08:37 Sodium Chloride (Normal Saline) Confirm Administered Dose 500 mls @ as directed .ROUTE .[facility] ONE Stop: 12/29/17 08:37 Potassium Chloride/Dextrose/Sod Cl (D5 1/2 Ns W/ 20 Meq/L Kcl) 1,000 mls @ 125 mls/hr IV ASDIRECTED [facility] Last Admin: 12/31/17 08:32 Dose: 125 mls/hr Potassium Chloride 20 meq/Lidocaine HCl 2 ml/ Sodium Chloride 112 mls @ 56 mls/ hr IV Q2H [facility] Stop: 12/31/17 19:59 Last Admin: 12/31/17 21:23 Dose: 56 mls/hr Iopamidol (Isovue-300 (61%)) 100 ml IV . DIRECTED [facility] Last Admin: 12/28/17 17:30 Dose: 100 ml Lactated Ringer's (Ringers, Lactated) 1,000 ml IRR .[facility] ONE Stop: 12/29/17 09:01 Last Admin: 12/29/17 09:00 Dose: 1,000 ml Lidocaine HCl (Xylocaine 2% Jelly) 10 ml MUCMEM ONETIME ONE Stop: 12/31/17 00:00 Last Admin: 12/31/17 00:35 Dose: 10 ml Lidocaine/Epinephrine (Xylocaine 1% With Epinephrine 1:100,000) Confirm Administered Dose 50 ml .ROUTE .[facility] ONE Stop: 12/29/17 07:01 Last Admin: 12/29/17 08:51 Dose: 10 ml Metoclopramide HCl (Reglan) 10 mg IVPUSH ONETIME ONE Stop: 12/28/17 15:19 Last Admin: 12/28/17 15:38 Dose: 10 mg Neostigmine Methylsulfate (Neostigmine) Confirm Administered Dose 5 mg .ROUTE .[facility] ONE Stop: 12/29/17 08:06 Ondansetron HCl (Zofran) Confirm Administered Dose 4 mg .ROUTE .[facility] ONE Stop: 12/29/17 08:06 Pantoprazole Sodium (Protonix Iv) 40 mg IV ONETIME ONE Stop: 12/28/17 19:02 Last Admin: 12/28/17 19:45 Dose: 40 mg Potassium Chloride (Klor-Con M20) 40 meq PO ONETIME ONE Stop: 12/31/17 10:01 Last Admin: 12/31/17 12:11 Dose: Not Given Propofol (Diprivan 20 Ml) Confirm Administered Dose 200 mg .ROUTE .STK-MED ONE Stop: 12/29/17 08:06 Rocuronium [place] (Zemuron) Confirm Administered Dose 50 mg .ROUTE .STK-MED ONE Stop: 12/29/17 08:06 Sodium Chloride (Saline Flush) 10 ml FLUSH ONETIME ONE Stop: 12/28/17 17:02 Last Admin: 12/28/17 17:30 Dose: 10 ml *Q Meaningful Use (DIS) - VTE *Q VTE Pharmacological Contraindications *Q: Patient Scheduled Surgery
[2018-01-01] MEDS ORDERED: Potassium Chloride 20 MEQ Tab.ER PO ONE (12:00)
--- NOTE | 2018-01-01 12:05 | PCM.DCSUM1 ---
Discharge Summary - Discharge Data Discharge Disposition: Home, Self-Care 01 Condition: Good - Discharge Diagnosis/Problem(s) (1) Acute cholecystitis SNOMED Code(s): 46020726 ICD Code: K81.0 - ACUTE CHOLECYSTITIS Status: Acute Current Visit: Yes - Patient Summary/Data Consults: Consultations 12/28/17 19:01 Consult to Physician [CONS] Routine Consulting Provider: Nirajnan Muhammad Call Completed to Consulting Physician: Yes Reason for Consult: acute cholecystitis Person Notified: BDB Date Notified: 12/28/17 Special Instructions: Mariaelena in the am at 0800 12/28/17 22:57 OT Evaluation and Treatment [CONS] Routine Please Evaluate and Treat. OT Reason for Consult: ADL's Special Instructions: per Kenny assessment This query below is only for informational purposes and is not editable. Admission Diagnosis/Problem: Acute cholecystitis 12/29/17 17:20 Respiratory Care Assess and Treatment [CONS] Routine Comment: Physician Instructions: Post-Op Pneumonia Prevention 12/29/17 17:22 Consult to Respiratory Therapy [Respiratory Care Assess and Treatment] [CONS] Routine Comment: Physician Instructions: Reason for Consult: assist with acupella 12/31/17 07:28 PT Evaluation and Treatment [CONS] Routine Please Evaluate and Treat. PT Reason for Consult: weakness This query below is only for informational purposes and is not editable. Admission Diagnosis/Problem: Acute cholecystitis - Patient Instructions Diet: Diabetic Diet Activity: As Tolerated Activity, Other: PT as needed. Help with ambulating and activities of daily living. Driving: Do Not Drive Showering/Bathing: Shower in AM Notify Provider of: Fever, Increased Pain, Swelling and Redness, Drainage, Nausea and/or Vomiting - Discharge Plan Home Medications: Home Meds Acetaminophen [Tylenol] 650 mg PO BID 12/28/17 [History] Calcium Carbonate/Vitamin D3 [Calcium 600 + Vit D Tablet] 1 tab PO BID 12/28/17 [History] Cholecalciferol (Vitamin D3) [Vitamin D3] 2,000 unit PO DAILY 12/28/17 [History] Citalopram Hydrobromide [Celexa] 10 mg PO DAILY 12/28/17 [History] Dextran 70/Hypromellose [Artificial Tears] 1 each EYEBOTH QID PRN 12/28/17 [ History] Lisinopril 5 mg PO DAILY 12/28/17 [History] Melatonin 3 mg PO BEDTIME 12/28/17 [History] Mirtazapine [Remeron] 15 mg PO BEDTIME 12/28/17 [History] atorvaSTATin [Lipitor] 10 mg PO BEDTIME 12/28/17 [History] metFORMIN [Glucophage] 500 mg PO BIDAC 12/28/17 [History] Acetaminophen [Tylenol] 650 mg PO Q4H PRN cup 01/01/18 [Rx] Patient Handouts: Laparoscopic Cholecystectomy, Care After, [id number], Preventing Constipation After Surgery Referrals: Niranjan Muhammad MD [Physician] - 01/13/18 12:00 pm (follow up cholecystectomy) Anthony Beck MD [Primary Care Provider] - - Patient Data Vitals - Most Recent: Last Vital Signs Temp 96.6 F 01/01/18 11:00 Pulse 89 01/01/18 11:00 Resp 18 01/01/18 11:00 BP 119/68 01/01/18 11:00 Pulse Ox 95 01/01/18 11:00 Weight - Most Recent: 161 lb 6.054 oz I&O - Last 24 hours: Intake & Output 12/31/17 01/01/18 01/01/18 22:59 06:59 14:59 Intake Total 150 709 Output Total 340 385 280 Balance -190 324 -280 Lab Results - Last 24 hrs: Laboratory Results - last 24 hr 01/01/18 01/01/18 Range/Units 05:11 05:11 WBC 10.9 (4.5-11.0) K/uL RBC 3.12 L (4.30-5.90) M/uL Hgb 9.0 L (12.0-15.0) g/dL Hct 28.8 L (40.0-54.0) % MCV 92 (80-98) fL MCH 29 (27-31) pg MCHC 31 L (32-36) % Plt Count 251 (150-400) K/uL Sodium 147 (140-148) mmol/L Potassium 3.4 L (3.6-5.2) mmol/L Chloride 111 H (100-108) mmol/L Carbon Dioxide 27 (21-32) mmol/L Anion Gap 12.4 (5.0-14.0) mmol/L BUN 22 H (7-18) mg/dL Creatinine 0.8 (0.8-1.3) mg/dL Est Cr Clr Drug Dosing 86.86 mL/min Estimated GFR (MDRD) > 60 (>60) Glucose 122 H (74-106) mg/dL Calcium 7.9 L (8.5-10.1) mg/dL Total Bilirubin 0.4 (0.2-1.0) mg/dL AST 87 H (15-37) U/L ALT 81 H (12-78) U/L Alkaline Phosphatase 69 (46-116) U/L Total Protein 5.4 L (6.4-8.2) g/dL Albumin 1.8 L (3.4-5.0) g/dL Globulin 3.6 H (2.3-3.5) g/dL Albumin/Globulin Ratio 0.5 L (1.2-2.2) KORTNEY Results - Last 24 hrs: Microbiology 12/29/17 11:31 Gram Stain - Final Gallbladder Fluid - Bile Wound Culture - Final NO GROWTH AFTER 3 DAYS Anaerobic Culture - Final NO GROWTH AFTER 3 DAYS 12/29/17 08:40 Gram Stain - Final Peritoneal Fluid Wound Culture - Final NO GROWTH AFTER 3 DAYS Anaerobic Culture - Final NO GROWTH AFTER 3 DAYS 12/28/17 16:33 Aerobic Blood Culture - Preliminary Blood - Arm, Right NO GROWTH AFTER 3 DAYS Anaerobic Blood Culture - Preliminary NO GROWTH AFTER 3 DAYS Med Orders - Current: Current Medications Acetaminophen (Tylenol) 650 mg PO Q4H PRN PRN Reason: PAIN Last Admin: 12/31/17 22:32 Dose: 650 mg Albuterol (Proventil Neb Soln) 2.5 mg NEB Q4H PRN PRN Reason: Shortness Of Breath/wheezing Artificial Tears (Natural Balance Tears) 0 ml EYEBOTH QID PRN PRN Reason: Dry Eyes Enoxaparin Sodium (Lovenox) 40 mg SUBCUT Q24H [facility] Last Admin: 12/31/17 12:36 Dose: 40 mg Piperacillin/Tazobactam/ (Dextrose 3.375 gm/ Premix) 50 mls @ 100 mls/hr IV Q6H [facility] Last Admin: 01/01/18 05:46 Dose: 100 mls/hr Sodium Chloride (Normal Saline) 1,000 mls @ 50 mls/hr IV ASDIRECTED [facility] Last Admin: 12/31/17 16:21 Dose: 50 mls/hr Insulin Aspart (Novolog) 0 unit SUBCUT QIDACANDBED [facility]; Protocol Last Admin: 01/01/18 11:28 Dose: Not Given Lorazepam (Ativan) 0.5 - 1 mg IVPUSH Q4H PRN PRN Reason: Nausea/Vomiting Last Admin: 01/01/18 09:58 Dose: 1 mg Melatonin (Melatonin) 9 mg PO BEDTIME [facility] Last Admin: 12/31/17 20:46 Dose: Not Given Mirtazapine (Remeron) 15 mg PO BEDTIME [facility] Last Admin: 12/31/17 20:46 Dose: Not Given Ondansetron HCl (Zofran Odt) 4 mg PO Q6H PRN PRN Reason: Nausea able to take PO Ondansetron HCl (Zofran) 4 mg IV Q6H PRN PRN Reason: Nausea/Vomiting Last Admin: 12/31/17 12:16 Dose: 4 mg Oxycodone HCl (Oxycodone) 5 mg PO Q4H PRN PRN Reason: Pain Last Admin: 01/01/18 10:00 Dose: 5 mg Potassium Chloride (Klor-Con M20) 40 meq PO ONETIME ONE Stop: 01/01/18 12:01 Discontinued Medications Acetaminophen (Tylenol) 650 mg PO Q4H PRN PRN Reason: Pain (Mild 1-3)/fever Last Admin: 12/30/17 12:04 Dose: 650 mg Bupivacaine HCl (Marcaine 0.5%) Confirm Administered Dose 50 ml .ROUTE .STK-MED ONE Stop: 12/29/17 07:01 Last Admin: 12/29/17 08:51 Dose: 10 ml Cefoxitin Sodium (Mefoxin) Confirm Administered Dose 2 gm .ROUTE .STK-MED ONE Stop: 12/29/17 08:32 Ephedrine Sulfate (Ephedrine Sulfate) Confirm Administered Dose 50 mg .ROUTE .STK-MED ONE Stop: 12/29/17 08:49 Fentanyl (Sublimaze) Confirm Administered Dose 250 mcg .ROUTE .STK-MED ONE Stop: 12/29/17 08:06 Glycopyrrolate (Robinul) Confirm Administered Dose 1 mg .ROUTE .STK-MED ONE Stop: 12/29/17 08:06 Hydromorphone HCl (Dilaudid) 0.5 mg IVPUSH Q2H PRN PRN Reason: Pain Last Admin: 12/31/17 06:31 Dose: 0.5 mg Lactated Ringer's (Ringers, Lactated) 1,000 mls @ 1,000 mls/hr IV [facility]OL[facility] ONE Stop: 12/28/17 16:17 Last Admin: 12/28/17 15:37 Dose: 1,000 mls/hr Lactated Ringer's (Ringers, Lactated) 1,000 mls @ 999 mls/hr IV [facility] ONE Stop: 12/28/17 17:52 Last Admin: 12/28/17 16:56 Dose: 999 mls/hr Sodium Chloride (Normal Saline) 80 mls @ 3.5 mls/sec IV ONETIME ONE Stop: 12/28/17 17:02 Last Admin: 12/28/17 17:30 Dose: 2.5 mls/sec Piperacillin Sod/Tazobactam (Sod 3.375 gm/ Sodium Chloride) 50 mls @ 100 mls/ hr IV Q6H [facility] Last Admin: 12/29/17 06:33 Dose: 100 mls/hr Sodium Chloride (Normal Saline) 1,000 mls @ 125 mls/hr IV ASDIRECTED [facility] Last Admin: 12/29/17 03:59 Dose: 125 mls/hr Sodium Chloride (Normal Saline) Confirm Administered Dose 10 mls @ as directed .ROUTE .STK-MED ONE Stop: 12/29/17 08:32 Sodium Chloride (Normal Saline) Confirm Administered Dose 500 mls @ as directed .ROUTE .STK-MED ONE Stop: 12/29/17 08:37 Sodium Chloride (Normal Saline) Confirm Administered Dose 500 mls @ as directed .ROUTE .STK-MED ONE Stop: 12/29/17 08:37 Potassium Chloride/Dextrose/Sod Cl (D5 1/2 Ns W/ 20 Meq/L Kcl) 1,000 mls @ 125 mls/hr IV ASDIRECTED [facility] Last Admin: 12/31/17 08:32 Dose: 125 mls/hr Potassium Chloride 20 meq/Lidocaine HCl 2 ml/ Sodium Chloride 112 mls @ 56 mls/ hr IV Q2H [facility] Stop: 12/31/17 19:59 Last Admin: 12/31/17 21:23 Dose: 56 mls/hr Iopamidol (Isovue-300 (61%)) 100 ml IV . DIRECTED [facility] Last Admin: 12/28/17 17:30 Dose: 100 ml Lactated Ringer's (Ringers, Lactated) 1,000 ml IRR .STK-MED ONE Stop: 12/29/17 09:01 Last Admin: 12/29/17 09:00 Dose: 1,000 ml Lidocaine HCl (Xylocaine 2% Jelly) 10 ml MUCMEM ONETIME ONE Stop: 12/31/17 00:00 Last Admin: 12/31/17 00:35 Dose: 10 ml Lidocaine/Epinephrine (Xylocaine 1% With Epinephrine 1:100,000) Confirm Administered Dose 50 ml .ROUTE .STK-MED ONE Stop: 12/29/17 07:01 Last Admin: 12/29/17 08:51 Dose: 10 ml Metoclopramide HCl (Reglan) 10 mg IVPUSH ONETIME ONE Stop: 12/28/17 15:19 Last Admin: 12/28/17 15:38 Dose: 10 mg Neostigmine Methylsulfate (Neostigmine) Confirm Administered Dose 5 mg .ROUTE .STK-MED ONE Stop: 12/29/17 08:06 Ondansetron HCl (Zofran) Confirm Administered Dose 4 mg .ROUTE .STK-MED ONE Stop: 12/29/17 08:06 Pantoprazole Sodium (Protonix Iv) 40 mg IV ONETIME ONE Stop: 12/28/17 19:02 Last Admin: 12/28/17 19:45 Dose: 40 mg Potassium Chloride (Klor-Con M20) 40 meq PO ONETIME ONE Stop: 12/31/17 10:01 Last Admin: 12/31/17 12:11 Dose: Not Given Propofol (Diprivan 20 Ml) Confirm Administered Dose 200 mg .ROUTE .STK-MED ONE Stop: 12/29/17 08:[address] [place] (Zemuron) Confirm Administered Dose 50 mg .ROUTE .STK-MED ONE Stop: 12/29/17 08:06 Sodium Chloride (Saline Flush) 10 ml FLUSH ONETIME ONE Stop: 12/28/17 17:02 Last Admin: 12/28/17 17:30 Dose: 10 ml *Q Meaningful Use (DIS) - VTE *Q VTE Pharmacological Contraindications *Q: Patient Scheduled Surgery
[2018-01-01] MEDS ORDERED: Ibuprofen Susp 100 MG/5 ML 5 ML UD Cup PO PRN (13:49)
[2018-01-01] MEDS ORDERED: Ibuprofen 400 MG Tab PO PRN (13:49)
== END 2018-01-01 14:12 | DRG 854 ==
LOC: JP.ED 14:07 → JP.MS 18:03
PROVIDERS: ADMIT Internal Medicine; ATTEND Hospitalist
PROC: 0FT44ZZ Resection of Gallbladder, Percutaneous Endoscopic Approach (ICD-10-PCS; principal; 2017-12-29)
PROC: 0FJ44ZZ Inspection of Gallbladder, Percutaneous Endoscopic Approach (ICD-10-PCS; 2017-12-29)
DX: A41.9 Sepsis, unspecified organism (principal); K80.00 Calculus of gallbladder with acute cholecystitis without obstruction; Z66 Do not resuscitate; I12.9 Hypertensive chronic kidney disease with stage 1 through stage 4 chronic kidney disease, or unspecified chronic kidney disease; E11.65 Type 2 diabetes mellitus with hyperglycemia; E11.22 Type 2 diabetes mellitus with diabetic chronic kidney disease; N18.3 Chronic kidney disease, stage 3 (moderate); G30.1 Alzheimer's disease with late onset; Z79.84 Long term (current) use of oral hypoglycemic drugs; K82.8 Other specified diseases of gallbladder; R10.9 Unspecified abdominal pain; F02.80 Dementia in other diseases classified elsewhere, unspecified severity, without behavioral disturbance, psychotic disturbance, mood disturbance, and anxiety; H54.7 Unspecified visual loss; Z96.641 Presence of right artificial hip joint; R33.9 Retention of urine, unspecified
CPT/HCPCS: 36415; 51702; 71045 ×2; 74019 ×2; 74177; 80048; 80076; 81001; 83605; 83690; 84484; 85027; 85379; 87040; 93005; 96361; 96374; 99285; J2765; J7030; J7050; J7120 ×2; Q9967; 80053; 82962; 87070; 87075; 87205; 87493; 88304; 94667; 97110-GP; 97162-GP; 97530-GP; A9270-GY; C9113; J0694; J1170; J1650; J2060; J2405; J2543; J2704; J2710; J3010; J3480; J7040

== ENCOUNTER 2018-01-02 03:20 | Emergency (ER) | payer MEDICARE, BC ==
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
== END 2018-01-02 04:55 ==
LOC: JP.ED 03:20
DX: R31.0 Gross hematuria (principal); I10 Essential (primary) hypertension; E11.9 Type 2 diabetes mellitus without complications; Z79.84 Long term (current) use of oral hypoglycemic drugs; Z79.899 Other long term (current) drug therapy; Z87.891 Personal history of nicotine dependence
CPT/HCPCS: 36415; 80048; 85025; 99285